=== PATIENT | female | born 1995 | race Caucasian/White ===

== ENCOUNTER → 2020-04-21 10:31 | Outpatient (BNVA) | payer MEDICARE, MEDICAID, SELFPAY | PROVIDERS: PCP Internal Medicine; Referring Provider Internal Medicine; Visit Provider Advanced Practice Midwife | DX: Z76.89 Persons encountering health services in other specified circumstances (principal) ==

== ENCOUNTER 2020-05-06 13:08 | Outpatient (REF) | payer MEDICARE, MEDICAID, SELFPAY ==
--- NOTE | 2020-05-06 13:27 | US_ITS ---
EXAMINATION: US OBSTETRICAL CLINICAL INFORMATION: 24-year-old at 19.5 weeks of gestation Suspected anomaly COMPARISON: 03/18/2020 TECHNIQUE: Real-time transabdominal ultrasound was performed using C1-5 megahertz transducer. FINDINGS: A single, active, fetus is seen in vertex presentation. The placenta is anterior without previa, and the amniotic fluid volume is wnl. MEASUREMENTS: 1. Biparietal Diameter: 4.4 cm; 19.2 wks 2. Occipital Frontal Diameter: 5.8 cm 3. Head Circumference: 16.2 cm; 19.0 wks 4. Abdominal Circumference: 14.5 cm; 19.6 wks 5. Femur Length: 3.1 cm; 19.6 wks 6. Humerus Length: 2.94 cm; 19.5 wks 7. Tibia Length: 2.8 cm; 20.0 wks 8. Ulna Length: 2.8 cm; 3.2 wks 9. Lateral ventricle: 0.65 cm 10. Cerebellum: 1.9 cm; 19.4 wks 11. Cisterna Magna: 0.54 cm 12. Nuchal Fold: 4.2 mm 13. Heart Rate: 153 beats per minute Rt ovary: normal Lt ovary: normal Cervical length cm on T/A. GESTATIONAL AGE: 1. Established GA: 19.5 wks 2. GA from REPLACED BY [facility]: 19.4 wks ESTIMATED DATE OF DELIVERY: 1. Established EMERITA: 09/25/2020 2. EMERITA from REPLACED BY [facility]: 09/26/2020 ANATOMY: The visualized anatomy includes but not limited to: 1. Cranium: Normal 2. Intracranial anatomy: cavum septum pellucidi, lateral ventricles, choroid plexus, cerebellum, posterior fossa, third and fourth ventricles. 3. face: orbits, lip/palate, profile, nasal bone 4. A discrete cysts measuring 0.5 x 0.5 cm noted in the left side of the neck. Most likely lymphatic cyst. No evidence of mass effect on trachea. 5. Heart: four-chamber view of the heart, ventricular septum, foramen ovale, pulmonary vein, left and right outflow tracts, three-vessel view, 3 vessel trachea view, aortic and ductal arches, situs.. 6. Diaphragm: Normal 7. Abdominal wall: Normal 8. Cord Insertion: Normal 9. Spine: Cervical, thoracic, lumbar, sacral. 10. Stomach: Normal size and shape 11. Right Kidney: Normal 12. Left Kidney: Normal 13. 3 vessel cord: Normal 14. Upper extremity: Open hands, fifth digit. 15. Lower extremity: Tibia, fibula, bilateral feet. 16. Bladder: Normal 17. Genitalia: Female, patient aware US/US OB /maternal detail IMPRESSION: 1. Single, living, intrauterine with appropriate biometry. 2. A discrete, left, neck cyst, most suggestive of lymphatic contrast cyst. Does not appear to involve the thyroid or larynx/trachea. Remainder of the anatomy is within normal limits. 3. Normal amniotic fluid volume DISCUSSION: I reviewed today's ultrasound findings. We discussed the limitations of ultrasound in diagnosing aneuploidy and other congenital abnormalities. I reviewed the differences between screening test and diagnostic test. Amniocentesis was discussed and declined. She had low risk N IPT. A discrete, lymphatic cyst in the neck is usually not associated with aneuploidy and is an isolated finding. However at times it may grow and cause airway obstruction. Since the cyst is outside of the trachea and unilateral, it is unlikely to cause complete obstruction of trachea or esophagus. Rare syndromes such as Medina's can be a possibility but unlikely as they often present with bilateral lymphatic cysts. She was informed that the baseline incidence of congenital abnormalities is approximately 3-5%. Not all these conditions are diagnosable in utero. RECOMMENDATIONS: 1. Refer to the [facility] for confirmatory ultrasound, MFM and genetic consultation. 2. f/u in 6 weeks (not scheduled). Thank you for allowing me to participate in her care. Visiting time 40 minutes. Majority of this visit was spent reviewing and discussing her care.
== END 2020-05-06 13:09 | disposition home or self-care (01) ==
LOC: HO.US 13:08
PROVIDERS: Visit Provider Advanced Practice Midwife
DX: Z34.80 Encounter for supervision of other normal pregnancy, unspecified trimester (principal); Z36.3 Encounter for antenatal screening for malformations; Z3A.19 19 weeks gestation of pregnancy
CPT/HCPCS: 76811

== ENCOUNTER → 2020-05-16 11:43 | Outpatient (BNVA) | payer MEDICARE, MEDICAID, SELFPAY | PROVIDERS: PCP Internal Medicine; Visit Provider Advanced Practice Midwife | DX: O35.8XX0 Maternal care for other (suspected) fetal abnormality and damage, not applicable or unspecified (principal); Z3A.21 21 weeks gestation of pregnancy; Z23 Encounter for immunization | CPT/HCPCS: 90686 ==

== ENCOUNTER → 2020-06-13 10:49 | Outpatient (BNVA) | payer MEDICARE, MEDICAID, SELFPAY | PROVIDERS: PCP Internal Medicine; Visit Provider Advanced Practice Midwife | DX: Z76.89 Persons encountering health services in other specified circumstances (principal) ==

== ENCOUNTER 2020-12-02 10:25 | Outpatient (REF) | payer OTHER, SELFPAY ==
[2020-12-02 10:52] LABS: COVID-19 Test Negative (Negative)
== END 2020-12-02 10:26 | disposition home or self-care (01) ==
LOC: HO.LAB 10:25
PROVIDERS: Visit Provider Internal Medicine
DX: Z20.822 Contact with and (suspected) exposure to COVID-19 (principal)
CPT/HCPCS: 36415; 87635; C9803

== ENCOUNTER 2021-12-27 09:35 | Outpatient (REF) | payer OTHER, SELFPAY ==
[2021-12-27 11:00] LABS: MANUAL DIFF FLAG NO
[2021-12-27 11:04] LABS: Basophils Percent Auto 0.3 % (0-2); Eosinophils Absolute Auto 0.2 X10*3/uL (0.0-0.4); Eosinophils Percent Auto 3.8 % (0-4); Hemoglobin 13.3 g/dl (12.0-16.0); Imm Gran Abs Auto 0.02 X10*3/uL (0.00-0.03); Imm Gran Pct Auto 0.3 % (0.0-0.4); Lymphocytes Absolute Auto 1.1 X10*3/uL (1.2-4.9); Lymphocytes Percent Auto 18.2 % (20-40); Mean Corpuscular HGB Conc 31.7 g/dl (31.0-35.0); Mean Corpuscular Hemoglobin 28.1 pg (27.0-33.0); Mean Corpuscular Volume 88.6 fL (80.0-98.0); Mean Platelet Volume 11.3 fL (9.4-12.3); Monocytes Absolute Auto 0.4 X10*3/uL (0.1-1.2); Monocytes Percent Auto 7.4 % (2-11); Neutrophils Absolute Auto 4.2 x10*3/uL (2.0-8.3); Platelet Count 253 X10*3/uL (160-400); Red Blood Count 4.74 X10*6/uL (4.20-5.50); Red Cell Distribution Width 12.2 % (11.0-16.0)
[2021-12-27 11:16] LABS: Alanine Aminotransferase 18 U/L (0-31); Albumin Level 4.6 g/dL (3.5-5.0); Alkaline Phosphatase 61 U/L (39-117); Anion Gap 10 (12-20); Aspartate Amino Transferase 14 U/L (5-31); Bilirubin Total 0.6 mg/dL (0.0-1.0); Blood Urea Nitrogen 14 mg/dL (9-16); Calcium 9.7 mg/dL (8.4-10.2); Carbon Dioxide 28 mmol/L (22-29); Chloride 107 mmol/L (96-108); Cholesterol 136 mg/dL; Estimated Glomerular Filt Rate > 60; Glucose Fasting 93 mg/dL (60-99); HDL Cholesterol 32 mg/dL; LDL Cholesterol Calculated 87 mg/dl; Potassium 4.4 mmol/L (3.3-5.1); Sodium 141 mmol/L (135-145); Total Protein 7.4 g/dL (6.5-8.0); Triglycerides 86 mg/dL
[2021-12-27 11:32] LABS: Appearance Urine HAZY; Color Urine YELLOW; Glucose Urine UA NEG (NEG); Leukocyte Esterase Urine NEG (NEG); Nitrite Urine NEG (NEG); Urine Blood NEG (NEG); Urine Ketones NEG (NEG); Urine Protein NEG (NEG-TRACE)
[2021-12-27 12:01] LABS: Vitamin B12 474 pg/mL (200-900)
[2022-01-02 12:36] LABS: Vitamin D 25-OH, D2 <4 ng/mL; Vitamin D 25-OH, D3 25 ng/mL; Vitamin D 25-OH, Total 25 ng/mL (30-100)
== END 2021-12-27 09:36 | disposition home or self-care (01) ==
LOC: HO.HMGCLDS 09:35
PROVIDERS: PCP Internal Medicine; Visit Provider Internal Medicine
DX: Z00.01 Encounter for general adult medical examination with abnormal findings (principal); M54.9 Dorsalgia, unspecified; M77.10 Lateral epicondylitis, unspecified elbow; R42 Dizziness and giddiness; R53.83 Other fatigue
CPT/HCPCS: 36415; 80053; 80061; 81003; 82306; 82607; 84443; 85025

== ENCOUNTER → 2022-02-15 09:08 | Outpatient (BNVA) | payer OTHER, SELFPAY | PROVIDERS: PCP Internal Medicine; Visit Provider Physician Assistant | DX: M77.11 Lateral epicondylitis, right elbow (principal); M77.12 Lateral epicondylitis, left elbow | CPT/HCPCS: 99202 ==

== ENCOUNTER 2022-02-22 09:00 | Outpatient (RCR) | payer OTHER, SELFPAY ==
--- NOTE | 2022-01-26 09:46 | MHC.PT.EP ---
[facility] [place] [facility] [place] [facility] [place] [facility] [address] Dhiraj Ventura [address] [phone] F: [phone] F: [phone] F: [phone] F: [phone] Physical Therapy Plan of Care Date of Evaluation: Date of Surgery: n/a Diagnosis: dorsalgia Assessment: Patient is a 26 year old female presenting to PT with complaints of pain in her mid and lower back. Pt reports onset of pain began as a teenager with worsening over the last couple years due to insidious onset but does have scoliosis at baseline. She presents today with impairments in pain, ROM, core strength, hip strength, and posture. 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 Pt expresses nursing home goal of reduce pain, and is motivated to work towards this in PT. Clinical presentation today is most consistent with signs and sx associated with back pain that is likely muscular related and pt will benefit from skilled PT to address the following problems and impairments noted upon evaluation: pain, ROM, core strength, hip strength, and posture. These problems limit the patient with the following functional activities: ADLs, sitting, standing, bending, lifting. The prescribed treatment plan of care is medically necessary. Co-morbidities of hx seizures per pt at a young age but they stopped does not take meds for this, scoliosis were identified and taken into considerations of plan of care. Pt was educated on HEP, role of PT, prognosis, POC. Frequency and Duration: The patient will be seen 2 x week x 4 weeks Short Term Goals: Pt will demonstrate improved hip strength by 1/3 MMT for improved lumbopelvic stability in 2 weeks. Pt will demonstrate ability to perform PPT with good TA recruitment in 2 weeks. Pt will demonstrate improved postural awareness by sitting with biomechanically correct posture without cues throughout session to improve overall postural function in 2 weeks. Account Services Manager Goals: Pt will demonstrate improved Navdeep score by 10% in 4 weeks for improved functional mobility. Pt will demonstrate min to no pain when bending and lifting in 4 weeks for improved ability to care for her kids. Pt will demonstrate ability complete all ADLs with min to no pain in 4 weeks for return to PLOF. Treatment Plan: Modalities to reduce pain, spasms and effusion. Manual therapy to restore motion and function. Therapeutic exercise to improve strength and flexibility. Neuromuscular re-education for posture and balance. Therapeutic activities to return to functional activities of daily living. Electronically signed by: Yancy Stein, PT, DPT, ATC Please sign and return to therapist. Thank you for your referral.
--- NOTE | 2022-03-28 12:59 | MHC.PT.DC ---
[facility] [place] Office [place] Office [place] Office [address] Dhiraj Ventura [address] [phone] F: [phone] F: [phone] F: [phone] F: [phone] Physical Therapy Discharge Report Diagnosis: dorsalgia Date of Surgery: n/a Date of Evaluation: 01/26/22 Date of Discharge: 03/28/22 Treatments to Date: 6 Cancellations to Date: 1 No Shows to Date: 1 Discharge Status: Discharge Summary: Pt has not been seen in skilled PT in >30 days. Pt to be d/c per our policy. Electronically signed by: Yancy Stein, PT, DPT, ATC Please sign and return to therapist. Thank you for your referral.
== END 2022-03-28 13:00 | disposition home or self-care (01) ==
LOC: HO.PTCHIC 09:00
PROVIDERS: PCP Internal Medicine; Visit Provider Internal Medicine
DX: M54.9 Dorsalgia, unspecified (principal)
CPT/HCPCS: 97110; 97140; 97161

== ENCOUNTER 2023-06-12 13:10 | Outpatient (AMB) | payer OTHER, SELFPAY ==
--- NOTE | 2023-06-12 13:24 | A.OFFPC_ITS ---
Vital Signs 06/12/23 13:25 Height 5 ft 3 in Weight 157 lb BMI 27.8 BP 110/80 Blood Pressure Location Rt brachial Position Sitting Pulse 76 Pulse Source Pulse Oximeter Pulse Oximetry (%) 98 Oxygen Delivery Method Room Air Intake Visit Reasons: RT foot Pain up to hip Allergies No Known Allergies [No Known Allergies*] Allergy (Verified 02/28/22 11:41) Medication List - Last Reconciled 06/12/23 by Tarun Harmon MD No Known Home Meds Tobacco use date assessed: 06/12/23 Dental Screening Dental Screen Date: 06/12/23 Did you have a dental visit in the last 12 months?: Yes Did you have a dental problem in the last 6 months where you did not have access to dental care?: No Was dental information given to patient?: Patient has dentist HPI RT foot Pain up to hip HPI Details Patient is 27-year-old female came in today to be evaluated for to medical problems Patient is having lower lumbar back pain for the past 3 months, patient says that he started suddenly 1 day It is radiating down to her right leg which is also having shooting pain and paresthesia in lower part of the leg. She has no bowel or bladder issue. Patient does have 3 children at home 9-year-old 5-year-old and a 2-year-old and she sometimes picks up her 2-year-old child. She is also having chronic nasal congestion she is using Flonase nasal spray 2 times a day and still not able to breathe especially at night Patient says that she is not able to smell anymore. On examination she has a deviated nasal septum to left I will be booking her appointment with ENT specialist. Meanwhile I have ordered x-ray of her lumbar spine Meloxicam 15 mg once a day and prednisone 20 mg once a day with food Prednisone for 5 days and meloxicam for 2 weeks Patient is to return in 2 week for re-evaluation She is also due for physical exam [facility] Medical History Migraine headache Scoliosis Surgical History No history of previous surgery Family History Maternal Grandmother Diabetes mellitus CVD (cardiovascular disease) Social History Housing: House Alcohol intake: never Patient Tobacco Use Status: Never used Tobacco e-Cigarette/Vaping Use: Never Used Second Hand Smoke Exposure: No service: No Current occupational status: employed Gender identity: Female Cognitive needs: No Hearing needs: No Vision needs: No Female Reproductive History Menstrual Age of Menarche: 13 Questionnaire PHQ-9 Over the last 2 weeks, how often have you been bothered by any of the following problems? 1. Little interest or pleasure in doing things: not at all 2. Feeling down, depressed, or hopeless: not at all 3. Trouble falling or staying asleep, or sleeping too much: not at all 4. Feeling tired or having little energy: not at all 5. Poor appetite or overeating: not at all 6. Feeling bad about yourself - or that you are a failure or have let yourself or your family down: not at all 7. Trouble concentrating on things, such as reading the newspaper or watching television: not at all 8. Moving or speaking so slowly that other people could have noticed. Or the opposite - being so fidgety or restless that you have been moving around a lot more than usual: not at all 9. Thoughts that you would be better off or of hurting yourself in some way: not at all Total score: 0 Depression Screening Interpretation: Negative Depression Screening Done: Yes 41045 - PHQ-9 Billing: Yes Source: Developed by Drs. Mohinder Turpin, Sandee Corcoran, Wicho Elizondo and colleagues, with an educational alan from [employer]. Thrive Questionnaire Date Thrive assessed: 06/12/23 I am a: Patient What is your living situation today?: I have a steady place to live Within the past 12 months, did the food you bought not last and you didn't have the money to get more?: Sometimes True Within the past 12 months, did you worry whether your food would run out before you got money to buy more?: Sometimes True Do you have trouble paying for medicines?: No Do you have trouble getting transportation to medical appointments?: No Do you have trouble paying your heating and electricity bill?: Yes Do you have trouble taking care of your child, family member or friend?: No Do you have trouble with day-to-day activities such as bathing, preparing meals, shopping, managing finances, etc.?: No Are you currently unemployed and looking for a job?: No Are you interested in more education?: No Please select the resources that you would like help with: None Currently or been in a relationship where the following occur: no concerns reported AUDIT C Alcohol Use Questionnaire (AUDIT-C) 1. How often do you have a drink containing alcohol?: Monthly or less 2. How many drinks containing alcohol do you have on a typical day when you are drinking?: 1 or 2 3. How often do you have six or more drinks on one occasion?: Never Total Score: 1 Score Reviewed/Action Taken: No JOANNA-7 AMB Questionnaire JOANNA-7 Date JOANNA - 7 assessed: 06/12/23 Feeling nervous, anxious, or on edge: 1 = Several days Not being able to stop or control worryin = Several days Worrying too much about different things: 3 = Nearly every day Trouble relaxin = More than half the days Being so restless that it is hard to sit still: 1 = Several days Becoming easily annoyed or irritable: 1 = Several days Feeling afraid as if something awful might happen: 1 = Several days Total JOANNA-7 score (0-4 normal; 5-9 mild; 10-14 moderate; 15-21 severe): 10 Source: Developed by Drs. Mohinder Turpin, Sandee Corcoran, Wicho Elizondo and colleagues, with an educational alan from [employer]. JOANAN-7 Assessment Billing JOANNA-7 Assessment Tool: JOANNA-7 Assessment 86032 Review of Systems Const Denies chills and Denies fever(s) ENT Denies epistaxis Card Denies chest pain Resp Denies chest congestion, Denies cough and Denies hemoptysis GI Denies diarrhea and Denies nausea Skin/Breast Denies rash Neuro Reports no additional complaints Psych Reports no additional complaints Endo Reports no additional complaints Physical exam (Primary Care) Vital Signs: Last Vital Signs Pulse 76 06/12/23 13:25 BP 110/80 06/12/23 13:25 Pulse Ox 98 06/12/23 13:25 Oxygen Delivery Method Room Air 06/12/23 13:25 BMI result Body Mass Index 27.8 Tobacco/Smoking Status: Tobacco use Status Tobacco use date assessed 06/12/23 06/12/23 13:30 Patient Tobacco Use Status Never used Tobacco 06/12/23 13:24 e-Cigarette/Vaping Use Never Used 06/12/23 13:24 PHQ-9: PHQ-9 Score PHQ-9: Total score 0 06/12/23 13:30 Depression Screening Interpretation: Negative Thrive Assessment: Date of Thrive Assessment Date Thrive assessed 06/12/23 06/12/23 13:30 Currently or been in a relationship where the following occur: no concerns reported Const General: cooperative, comfortable and no acute distress Orientation/consciousness: patient oriented x3 HENMT Other: Clear nasal discharge with deviated septum to left Head: Yes normocephalic Eyes General: appearance normal, both eyes and all related structures Neck Neck: Yes supple Resp Effort & Inspection: normal respiratory effort, no cough and no stridor Cardio Rhythm: regular rhythm Heart sounds: S1 normal heart sound present and S2 normal heart sound present Back/Spine/Pelvis Other: No pain with percussion lumbar spine, range of motion slightly limited due to pain in flexion, straight leg negative Skin General skin exam: turgor normal Neuro Other: Motor sensory intact DTR 2+ bilateral symmetrical General: patient oriented x3, tone normal and moves all extremities Extrem Right lower extremity: no edema Left lower extremity: no edema Assessment and Plan Assessment & Plan (1) Right lumbar radiculitis: Code(s): M54.16 - Radiculopathy, lumbar region (2) Deviated nasal septum: Code(s): J34.2 - Deviated nasal septum (3) Chronic nasal congestion: Code(s): R09.81 - Nasal congestion (4) Anosmia: Code(s): R43.0 - Anosmia (5) Paresthesia of right leg: Code(s): R20.2 - Paresthesia of skin Plan Patient is 27-year-old female came in today to be evaluated for to medical problems Patient is having lower lumbar back pain for the past 3 months, patient says that he started suddenly 1 day It is radiating down to her right leg which is also having shooting pain and paresthesia in lower part of the leg. She has no bowel or bladder issue. Patient does have 3 children at home 9-year-old 5-year-old and a 2-year-old and she sometimes picks up her 2-year-old child. She is also having chronic nasal congestion she is using Flonase nasal spray 2 times a day and still not able to breathe especially at night Patient says that she is not able to smell anymore. On examination she has a deviated nasal septum to left I will be booking her appointment with ENT specialist. Meanwhile I have ordered x-ray of her lumbar spine Meloxicam 15 mg once a day and prednisone 20 mg once a day with food Prednisone for 5 days and meloxicam for 2 weeks Patient is to return in 2 week for re-evaluation She is also due for physical exam Orders: Orders XR lumbar spine 2-3V Today M54.16 - Radiculopathy, lumbar region Referrals Ear/Nose/Throat Referral J34.2 - Deviated nasal septum, R09.81 - Nasal congestion, R43.0 - Anosmia Medications: New meloxicam 15 mg PO DAILY 14 days 14 tabs 0RF prednisone 20 mg PO DAILY 5 days 5 tabs 0RF Coding Level of Care Code Est Pt Level 4 (70911) Diagnoses Right lumbar radiculitis M54.16 Deviated nasal septum J34.2 Chronic nasal congestion R09.81 Anosmia R43.0 Paresthesia of right leg R20.2 Additional Codes JOANNA-7 Assessment Billing - JOANNA-7 Assessment Tool: JOANNA-7 Assessment [id number] ([id number])
[2023-06-12 13:25] VITALS: BP 110/80; PULSE 76; O2SAT 98; BMI 27.8
== END 2023-06-12 14:34 | disposition home or self-care (01) ==
PROVIDERS: PCP Internal Medicine; Visit Provider Internal Medicine
DX: M54.16 Radiculopathy, lumbar region (principal); J34.2 Deviated nasal septum; R09.81 Nasal congestion; R43.0 Anosmia; R20.2 Paresthesia of skin
CPT/HCPCS: 99214

== ENCOUNTER 2023-06-26 12:07 | Outpatient (AMB) | payer OTHER, SELFPAY ==
--- NOTE | 2023-06-26 12:09 | A.OFFPC_ITS ---
Vital Signs 06/26/23 12:12 Height 5 ft 3 in Weight 157 lb 8 oz BMI 27.9 BP 120/86 Blood Pressure Location Rt brachial Position Sitting Pulse 83 Pulse Source Pulse Oximeter Pulse Oximetry (%) 99 Oxygen Delivery Method Room Air Intake Visit Reasons: Annual PE Over due/ 2 week follow up per [place] Allergies No Known Allergies [No Known Allergies*] Allergy (Verified 06/26/23 12:14) Medication List - Last Reconciled 06/26/23 by Tarun Harmon MD No Known Home Meds Tobacco use date assessed: 06/26/23 Dental Screening Dental Screen Date: 06/26/23 Did you have a dental visit in the last 12 months?: Yes Did you have a dental problem in the last 6 months where you did not have access to dental care?: No Was dental information given to patient?: Patient has dentist HPI Annual PE Over due/ 2 week follow up per [place] HPI Details Patient is 27-year-old female came in today for physical exam She was seen few days ago for back pain and severe nasal congestion and anosmia I prescribed NSAIDs and prednisone for her back pain and placed a referral for her to see ENT for DNS Patient says that when she took the medication I prescribed for back her nasal congestion resolved and she was able to smell Her back pain is better but she still have it I am ordering labs to be done fasting, patient did not do the x-ray that I ordered when I saw her few days ago she will have it done as well I am prescribing Flonase nasal spray and Zyrtec that she need to start taking She is also verbalizing to feeling anxious and having panic attacks Patient is willing to try medication, I have sent Lexapro 10 mg tablet patient is take half a tablet for a week and then full tablet We will book telemedicine visit in 3 week to see how she is doing Due for Pap smear [facility] Medical History Migraine headache Scoliosis Surgical History No history of previous surgery Family History Maternal Grandmother Diabetes mellitus CVD (cardiovascular disease) Social History Housing: House Alcohol intake: never Patient Tobacco Use Status: Never used Tobacco e-Cigarette/Vaping Use: Never Used Second Hand Smoke Exposure: No service: No Current occupational status: employed Gender identity: Female Cognitive needs: No Hearing needs: No Vision needs: No Female Reproductive History Menstrual Age of Menarche: 13 Questionnaire PHQ-9 Over the last 2 weeks, how often have you been bothered by any of the following problems? 1. Little interest or pleasure in doing things: several days 2. Feeling down, depressed, or hopeless: several days 3. Trouble falling or staying asleep, or sleeping too much: more than half the days 4. Feeling tired or having little energy: not at all 5. Poor appetite or overeating: not at all 6. Feeling bad about yourself - or that you are a failure or have let yourself or your family down: several days 7. Trouble concentrating on things, such as reading the newspaper or watching television: several days 8. Moving or speaking so slowly that other people could have noticed. Or the opposite - being so fidgety or restless that you have been moving around a lot more than usual: not at all 9. Thoughts that you would be better off or of hurting yourself in some way: not at all Total score: 6 Depression Screening Interpretation: Negative Depression Screening Done: Yes [id number] - PHQ-9 Billing: Yes Source: Developed by Drs. Mohinder Turpin, Sandee Corcoran, Wicho Elizondo and colleagues, with an educational alan from [employer] Thrive Questionnaire Date Thrive assessed: 06/12/23 AUDIT C Alcohol Use Questionnaire (AUDIT-C) 1. How often do you have a drink containing alcohol?: 2-4 times a month 2. How many drinks containing alcohol do you have on a typical day when you are drinking?: 1 or 2 3. How often do you have six or more drinks on one occasion?: Never Total Score: 2 Score Reviewed/Action Taken: Yes JOANNA-7 AMB Questionnaire JOANNA-7 Date JOANNA - 7 assessed: 06/12/23 Source: Developed by Drs. Mohinder Turpin, Sandee Corcoran, Wicho Elizondo and colleagues, with an educational alan from [employer] Review of Systems Const Denies chills, Denies fever(s) and Denies headache(s) Eyes Denies blurry vision ENT Denies headache(s), Denies odynophagia and Denies sinus pain Card Denies chest pain at rest and Denies chest pain with activity Resp Denies cough and Denies hemoptysis GI Denies diarrhea, Denies odynophagia, Denies vomiting and Denies hematemesis Reports as per HPI Musc Denies abnormal gait Skin/Breast Reports as per HPI Neuro Denies Neuro-related abnormal movements, Denies Abnormal speech present, Denies abnormal gait, Denies headache(s) and Denies Sensory deficit (Neuro) Psych Denies mood swings and Denies paranoia Endo Reports as per HPI Jared/Lymph Reports as per HPI Aller/Immun Reports as per HPI Physical exam (Primary Care) Vital Signs: Last Vital Signs Pulse 83 06/26/23 12:12 BP 120/86 06/26/23 12:12 Pulse Ox 99 06/26/23 12:12 Oxygen Delivery Method Room Air 06/26/23 12:12 BMI result Body Mass Index 27.9 Tobacco/Smoking Status: Tobacco use Status Tobacco use date assessed 06/26/23 06/26/23 12:14 Patient Tobacco Use Status Never used Tobacco 06/26/23 12:10 e-Cigarette/Vaping Use Never Used 06/26/23 12:10 Depression Screening Interpretation: Negative Thrive Assessment: Date of Thrive Assessment Date Thrive assessed 06/12/23 06/26/23 12:10 Const General: cooperative, comfortable and no acute distress Orientation/consciousness: patient oriented x3 HENMT Other: Nasal congestion present Head: Yes normocephalic and Yes atraumatic Eyes General: appearance normal, both eyes and all related structures Pupils: Equal, round and reactive pupils present EOM: EOMs intact bilaterally Neck Neck: Yes supple and No lymphadenopathy Thyroid: Thyroid normal Lymphatic: no lymphadenopathy noted Chest Breast/axilla palpation: normal palpation of the breasts Resp Effort & Inspection: normal respiratory effort and able to speak in complete sentences Auscultation: clear to auscultation bilaterally Cardio Heart sounds: S1 normal heart sound present and S2 normal heart sound present GI Palpation (GI): Soft to palpation and nontender Auscultation: normal bowel sounds General: Yes no CVA tenderness Back/Spine/Pelvis Back: no CVA tenderness Skin General skin exam: elasticity normal and turgor normal Neuro General: patient oriented x3 and gait normal Cranial nerves: Yes Equal, round and reactive pupils present Speech: No Abnormal speech present Sensory Exam: No Sensory deficit (Neuro) Coordination: tandem gait normal and Romberg test negative Extrem General: Yes normal exam except as noted and No edema Assessment and Plan Assessment & Plan (1) Encounter for general adult medical examination with abnormal findings: Code(s): Z00.01 - Encounter for general adult medical examination with abnormal findings (2) Vitamin D deficiency: Code(s): E55.9 - Vitamin D deficiency, unspecified (3) Right lumbar radiculitis: Code(s): M54.16 - Radiculopathy, lumbar region (4) Deviated nasal septum: Code(s): J34.2 - Deviated nasal septum (5) Chronic nasal congestion: Code(s): R09.81 - Nasal congestion (6) Anosmia: Code(s): R43.0 - Anosmia (7) Paresthesia of right leg: Code(s): R20.2 - Paresthesia of skin Plan Patient is 27-year-old female came in today for physical exam She was seen few days ago for back pain and severe nasal congestion and anosmia I prescribed NSAIDs and prednisone for her back pain and placed a referral for her to see ENT for DNS Patient says that when she took the medication I prescribed for back her nasal congestion resolved and she was able to smell Her back pain is better but she still have it , radiating to right leg. However there is no weakness in her right leg and paresthesias better I am ordering labs to be done fasting, patient did not do the x-ray that I ordered when I saw her few days ago she will have it done as well I am prescribing Flonase nasal spray and Zyrtec that she need to start taking She is also verbalizing to feeling anxious and having panic attacks Patient is willing to try medication, I have sent Lexapro 10 mg tablet patient is take half a tablet for a week and then full tablet We will book telemedicine visit in 3 week to see how she is doing Due for Pap smear Orders: Orders Complete Blood Count Auto Diff Today E55.9 - Vitamin D deficiency, unspecified, Z00.01 - Encounter for general adult medical examination with abnormal findings Comprehensive [place]. Panel Fast Today E55.9 - Vitamin D deficiency, unspecified, Z00.01 - Encounter for general adult medical examination with abnormal findings Lipid Panel Today E55.9 - Vitamin D deficiency, unspecified, Z00.01 - Encounter for general adult medical examination with abnormal findings Referrals JD EDWARDS Referral Z01.419 - Encounter for gynecological examination (general) (routine) without abnormal findings Medications: New escitalopram oxalate (Lexapro) 10 mg PO DAILY 30 tabs 0RF Anxiety fluticasone propionate 50 mcg/actuation (Allergy Relief (fluticasone)) administer into each nostril 1 spray intranasal DAILY 30 days 1 mL 0RF R09. 81 - Nasal congestion cholecalciferol (vitamin D3) 25 mcg PO DAILY 90 days 90 caps 1RF cetirizine (Zyrtec) 10 mg PO DAILY 90 days 90 tabs 1RF Nasal congestion Coding Level of Care Code Est Pt Prev Care 18-39y(12787) Diagnoses Encounter for general adult medical examination with abnormal findings Z00.01 Vitamin D deficiency E55.9 Right lumbar radiculitis M54.16 Deviated nasal septum J34.2 Chronic nasal congestion R09.81 Anosmia R43.0 Paresthesia of right leg R20.2
[2023-06-26 12:12] VITALS: BP 120/86; PULSE 83; O2SAT 99; BMI 27.9
== END 2023-06-26 12:36 | disposition home or self-care (01) ==
PROVIDERS: PCP Internal Medicine; Visit Provider Internal Medicine
DX: Z00.01 Encounter for general adult medical examination with abnormal findings (principal); E55.9 Vitamin D deficiency, unspecified; M54.16 Radiculopathy, lumbar region; J34.2 Deviated nasal septum; R09.81 Nasal congestion; R43.0 Anosmia; R20.2 Paresthesia of skin
CPT/HCPCS: 99213; 99395

== ENCOUNTER 2023-07-16 09:50 | Outpatient (REF) | payer OTHER, SELFPAY ==
[2023-07-16 13:16] LABS: MANUAL DIFF FLAG NO
[2023-07-16 13:19] LABS: Basophils Absolute Auto 0.1 X10*3/uL (0.0-0.2); Eosinophils Absolute Auto 0.8 X10*3/uL (0.0-0.4); Eosinophils Percent Auto 12.1 % (0-4); Hemoglobin 13.7 g/dl (12.0-16.0); Imm Gran Abs Auto 0.01 X10*3/uL (0.00-0.03); Imm Gran Pct Auto 0.2 % (0.0-0.4); Lymphocytes Absolute Auto 1.7 X10*3/uL (1.2-4.9); Lymphocytes Percent Auto 27.8 % (20-40); Mean Corpuscular HGB Conc 32.6 g/dl (31.0-35.0); Mean Corpuscular Hemoglobin 28.8 pg (27.0-33.0); Mean Corpuscular Volume 88.4 fL (80.0-98.0); Mean Platelet Volume 11.4 fL (9.4-12.3); Monocytes Absolute Auto 0.6 X10*3/uL (0.1-1.2); Monocytes Percent Auto 8.8 % (2-11); Neutrophils Absolute Auto 3.1 x10*3/uL (2.0-8.3); Neutrophils Percent Auto 50.1 % (45-73); Platelet Count 248 X10*3/uL (160-400); Red Blood Count 4.75 X10*6/uL (4.20-5.50); Red Cell Distribution Width 12.3 % (11.0-16.0); White Blood Count 6.3 X10*3/uL (4.8-10.8)
[2023-07-16 13:32] LABS: Alanine Aminotransferase 19 U/L (0-31); Albumin Level 4.4 g/dL (3.5-5.0); Alkaline Phosphatase 58 U/L (39-117); Anion Gap 13 (12-20); Aspartate Amino Transferase 17 U/L (5-31); Bilirubin Total 0.3 mg/dL (0.0-1.0); Blood Urea Nitrogen 14 mg/dL (9-16); Calcium 9.2 mg/dL (8.4-10.2); Carbon Dioxide 25 mmol/L (22-29); Chloride 108 mmol/L (96-108); Cholesterol 137 mg/dL (<200); Estimated Glomerular Filt Rate > 60; Glucose Fasting 101 mg/dL (60-99); HDL Cholesterol 37 mg/dL (>40); LDL Cholesterol Calculated 85 mg/dL (<100); Potassium 4.3 mmol/L (3.3-5.1); Sodium 142 mmol/L (135-145); Triglycerides 77 mg/dL (<150)
== END 2023-07-16 09:51 | disposition home or self-care (01) ==
LOC: HO.HMGCLDS 09:50
PROVIDERS: PCP Internal Medicine; Visit Provider Internal Medicine
DX: Z00.01 Encounter for general adult medical examination with abnormal findings (principal); E55.9 Vitamin D deficiency, unspecified
CPT/HCPCS: 36415; 80053; 80061; 85025

== ENCOUNTER 2023-07-18 08:27 | Outpatient (AMB) | payer OTHER, SELFPAY ==
--- NOTE | 2023-07-18 08:40 | MHC.PC.OV ---
Intake Visit Reasons: [phone] Allergies No Known Allergies [No Known Allergies*] Allergy (Verified 07/18/23 08:40) Medication List - Last Reconciled 07/18/23 by Tarun Harmon MD cetirizine (Zyrtec) 10 mg PO DAILY 90 days cholecalciferol (vitamin D3) 25 mcg PO DAILY 90 days escitalopram oxalate (Lexapro) 10 mg PO DAILY fluticasone propionate 50 mcg/actuation (Allergy Relief (fluticasone)) 1 spray intranasal DAILY 30 days Tobacco use date assessed: 07/18/23 Dental Screening Dental Screen Date: 07/18/23 Did you have a dental visit in the last 12 months?: Yes Did you have a dental problem in the last 6 months where you did not have access to dental care?: No Was dental information given to patient?: Patient has dentist HPI [phone] HPI Details Patient is 27-year-old female with deviated nasal septum and chronic nasal discharge. I prescribed Flonase nasal spray which helped her with her allergies but did not help with the congestion, pre she is also having yellow nasal discharge and tells me that her sinuses are painful. I placed a referral for her to see ENT specialist a month ago, however patient says that her insurance changed this year so she need a new referral I am treating her with azithromycin and prednisone 10 mg once a day for 7 days Anxiety medication that I prescribed last visit, patient did not take as she was home and did feel much anxiety. [facility] Medical History Migraine headache Scoliosis Surgical History No history of previous surgery Family History Maternal Grandmother Diabetes mellitus CVD (cardiovascular disease) Social History Housing: House Alcohol intake: never Patient Tobacco Use Status: Never used Tobacco e-Cigarette/Vaping Use: Never Used Second Hand Smoke Exposure: No service: No Current occupational status: employed Gender identity: Female Cognitive needs: No Hearing needs: No Vision needs: No Female Reproductive History Menstrual Age of Menarche: 13 Questionnaire Thrive Questionnaire Date Thrive assessed: 06/12/23 JOANNA-7 AMB Questionnaire JOANNA-7 Date JOANNA - 7 assessed: 06/12/23 Source: Developed by Drs. Mohinder Turpin, Sandee Corcoran, Wicho Elizondo and colleagues, with an educational alan from [employer]. Review of Systems Const Denies chills and Denies fever(s) ENT Denies epistaxis Card Denies chest pain Resp Denies chest congestion, Denies cough and Denies hemoptysis GI Denies diarrhea and Denies nausea Skin/Breast Denies rash Neuro Reports no additional complaints Psych Reports no additional complaints Endo Reports no additional complaints Physical exam (Primary Care) Tobacco/Smoking Status: Tobacco use Status Tobacco use date assessed 07/18/23 07/18/23 08:41 Patient Tobacco Use Status Never used Tobacco 07/18/23 08:41 e-Cigarette/Vaping Use Never Used 07/18/23 08:41 Thrive Assessment: Date of Thrive Assessment Date Thrive assessed 06/12/23 07/18/23 08:41 Telehealth Telehealth Location of provider rendering services: practice address Location of patient: address on file Patient Identification confirmed using: Name, : Yes Telehealth method: video Patient verbally consented to treatment: Yes Patient verbally consented to billing insurance company: Yes Patient informed of any privacy concerns related to visit: Yes Minutes spent on Phone/Video with Pt.: 13 Assessment and Plan Assessment & Plan (1) Anosmia: Code(s): R43.0 - Anosmia (2) Chronic nasal congestion: Code(s): R09.81 - Nasal congestion (3) Deviated nasal septum: Code(s): J34.2 - Deviated nasal septum Plan Patient is 27-year-old female with deviated nasal septum and chronic nasal discharge. I prescribed Flonase nasal spray which helped her with her allergies but did not help with the congestion, pre she is also having yellow nasal discharge and tells me that her sinuses are painful. I placed a referral for her to see ENT specialist a month ago, however patient says that her insurance changed this year so she need a new referral I am treating her with azithromycin and prednisone 10 mg once a day for 7 days Anxiety medication that I prescribed last visit, patient did not take as she was home and did feel much anxiety. Orders: Referrals Ear/Nose/Throat Referral J34.2 - Deviated nasal septum, R09.81 - Nasal congestion, R43.0 - Anosmia Medications: New prednisone 10 mg PO DAILY 7 tabs 0RF 7 days azithromycin Take 2 tablets today then 1 daily 250 mg PO ONCE 6 tabs 0RF 5 days J06.9 - Acute upper respiratory infection, unspecified Discontinued escitalopram oxalate (Lexapro) Discontinued Reason: Doctor's Order 10 mg PO DAILY 30 tabs 0RF Anxiety Coding Level of Care Code Tele New Pt Level 3 (13132) Diagnoses Anosmia R43.0 Chronic nasal congestion R09.81 Deviated nasal septum J34.2
== END 2023-07-18 09:36 | disposition home or self-care (01) ==
PROVIDERS: PCP Internal Medicine; Visit Provider Internal Medicine
DX: R43.0 Anosmia (principal); R09.81 Nasal congestion; J34.2 Deviated nasal septum
CPT/HCPCS: 99213

== ENCOUNTER 2023-09-18 10:20 | Outpatient (AMB) | payer OTHER, SELFPAY ==
--- NOTE | 2023-09-18 10:39 | A.OFFVIS_ITS ---
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 No complaints. The patient is interested in STD screen Last Pap/HPV was negative in 02/01 [facility] Medical History (Updated 09/18/23 @ 11:02 by Mehran Salinas MD) Migraine headache Scoliosis Surgical History (Updated 09/18/23 @ 10:49 by [place] Ellis CMA) Hx of tubal ligation Family History Maternal Grandmother Diabetes mellitus CVD (cardiovascular disease) Social History (Updated 09/18/23 @ 10:51 by Africa Ellis CMA) Household Members: Spouse and Children Housing: House Alcohol intake: current Alcohol intake frequency: holidays/special occasions only Patient Tobacco Use Status: Never used Tobacco e-Cigarette/Vaping Use: Never Used Second Hand Smoke Exposure: No service: No Current occupational status: employed 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[employer]) Sexually active: Yes Sexual orientation: Straight/Heterosexual Gender identity: Female Cognitive needs: No Hearing needs: No Vision needs: No Female Reproductive History Menstrual Age of Menarche: 13 Date of last pap smear: 01/30/21 Review of Systems Const All systems reviewed & are unremarkable except as noted in HPI and below Card Reports as per HPI Resp Reports as per HPI GI Reports as per HPI and Reports no additional complaints Reports as per HPI Physical Exam Vital Signs: Last Vital Signs BP 110/70 09/18/23 10:45 Const General: cooperative, healthy appearing and comfortable Chest Chest palpation & inspection: normal inspection of the chest and normal palpation of entire chest wall Breast/axilla inspection: normal inspection of the breasts and normal inspection of the axillae Breast/axilla palpation: normal palpation of the breasts, normal palpation of the axillae and no axillary lymphadenopathy Resp Effort & Inspection: normal respiratory effort Auscultation: clear to auscultation bilaterally Percussion: percussion normal Cardio Palpation: normal PMI Rate: regular rate Rhythm: regular rhythm Heart sounds: no murmurs and no rubs Peripheral pulses: Peripheral pulses 2+ throughout GI Inspection: Yes normal to inspection Palpation (GI): Soft to palpation, nontender, no guarding, not rigid and No hepatosplenomegaly present Percussion: Yes normal to percussion Auscultation: normal bowel sounds Rectal Exam - Female: deferred General: Yes bladder normal to palpation External Female Exam: No lesion Speculum Exam - Vagina: normal appearance of the vagina, normal palpation, normal vaginal discharge and not erythematous Speculum Exam - Cervix: normal appearance of the cervix and normal palpation Bimanual exam- vagina & uterus: normal bimanual exam, normal palpation, uterine size normal, bladder normal to palpation, consistency normal and normal palpation Bimanual Exam- Adnexa, other: normal adnexae, no masses and no tenderness Assessment & Plan Assessment & Plan (1) Well woman exam: Code(s): Z01.419 - Encounter for gynecological examination (general) (routine) without abnormal findings Plan: Co testing the. Counseled the patient about the recommended dietary allowance of 1000 mg of Calcium & 600 IU of vitamin D. The patient was instructed to perform monthly self-breast exams , to call for any changes in menstrual patterns and to schedule an annual exam in a year; all questions answered and the patient verbalized understanding. (2) Screen for STD (sexually transmitted disease): Code(s): Z11.3 - Encounter for screening for infections with a predominantly sexual mode of transmission Plan: STD screening tests done includes: BV panel for trichomonas, GC/CT will send patient for serology std screening for HIV, RPR, Hep b s Ag, HepC Ab. Instructions given the patient to schedule a follow-up appointment for repeat serology screen in 6 months for possible false negatives. Orders: Orders Hepatitis B Surface Antigen Today Z20.2 - Contact with and (suspected) exposure to infections with a predominantly sexual mode of transmission Hepatitis C Antibody Today Z20.2 - Contact with and (suspected) exposure to infections with a predominantly sexual mode of transmission Syphilis Screen Today Z20.2 - Contact with and (suspected) exposure to infections with a predominantly sexual mode of transmission HIV Ab/Ag Today Z20.2 - Contact with and (suspected) exposure to infections with a predominantly sexual mode of transmission Coding Level of Care Code Est Pt Prev Care 18-39y(52287) Diagnoses Well woman exam Z01.419 Screen for STD (sexually transmitted disease) Z11.3
[2023-09-18 10:45] VITALS: BP 110/70
== END 2023-09-18 11:19 | disposition home or self-care (01) ==
LOC: HO.HWS 10:20
PROVIDERS: PCP Internal Medicine; Visit Provider Obstetrics & Gynecology
DX: Z01.419 Encounter for gynecological examination (general) (routine) without abnormal findings (principal); Z11.3 Encounter for screening for infections with a predominantly sexual mode of transmission
CPT/HCPCS: 99395

== ENCOUNTER 2023-09-18 10:20 | Outpatient (REF) | payer OTHER, SELFPAY ==
[2023-09-18 16:37] LABS: CT PCR NOT DETECTED (Not Detect.); NG PCR NOT DETECTED (Not Detect.)
[2023-09-19 08:43] LABS: Syphilis Screen Nonreactive (Nonreactive)
[2023-09-19 08:55] LABS: HIV AB/AG Nonreactive (Nonreactive); HIV Num 1 0.06 S/CO (0.00-0.99); Hepatitis B Surface Antigen Negative (Negative); ~Hepatitis C Antibody Nonreactive (Nonreactive)
[2023-09-19 11:10] LABS: BV Int Neg Control Negative (Negative); BV Int Pos Control Positive (Positive)
== END 2023-09-18 10:21 | disposition home or self-care (01) ==
LOC: HO.LAB 10:20
PROVIDERS: PCP Internal Medicine; Visit Provider Obstetrics & Gynecology
DX: Z01.419 Encounter for gynecological examination (general) (routine) without abnormal findings (principal); Z20.2 Contact with and (suspected) exposure to infections with a predominantly sexual mode of transmission
CPT/HCPCS: 0353U; 36415; 86780; 86803; 87340; 87389; 87480; 87510; 87660; 99395

== ENCOUNTER 2023-09-18 11:15 | Outpatient (REF) | payer OTHER, SELFPAY ==
[2023-09-25 12:48] LABS: HPV mRNA E6/E7 rflx Not Detected (Not Detected)
== END 2023-09-18 11:16 | disposition home or self-care (01) ==
LOC: HO.LNP 11:15
PROVIDERS: Visit Provider Obstetrics & Gynecology
DX: Z01.419 Encounter for gynecological examination (general) (routine) without abnormal findings (principal); Z20.2 Contact with and (suspected) exposure to infections with a predominantly sexual mode of transmission
CPT/HCPCS: 87624; 88142

== ENCOUNTER 2024-07-03 11:19 | Outpatient (AMB) | payer OTHER, SELFPAY ==
[2024-07-03 11:23] VITALS: BP 124/86; PULSE 96; O2SAT 99; BMI 30.4
--- NOTE | 2024-07-03 11:23 | A.OFFPC_ITS ---
Vital Signs 07/03/24 11:23 Height 5 ft 3 in Weight 171 lb 6 oz BMI 30.4 BP 124/86 Blood Pressure Location Lt brachial Position Sitting Pulse 96 Pulse Source Pulse Oximeter Pulse Oximetry (%) 99 Oxygen Delivery Method Room Air Intake Visit Reasons: Annual PE Allergies No Known Allergies [No Known Allergies*] Allergy (Verified 07/03/24 11:23) Medication List - Last Reconciled 07/03/24 by Tarun Harmon MD cetirizine (Zyrtec) 10 mg PO DAILY 90 days fluticasone propionate 50 mcg/actuation (Allergy Relief (fluticasone)) 1 spray intranasal DAILY 30 days Tobacco use date assessed: 07/03/24 Dental Screening Dental Screen Date: 07/03/24 Did you have a dental visit in the last 12 months?: Yes Did you have a dental problem in the last 6 months where you did not have access to dental care?: No Was dental information given to patient?: Patient has dentist HPI Annual PE HPI Details Physical exam appointment - The patient is a 28-year-old female pr esenting with management of anxiety and chronic headaches. - Headaches occurring nearly every day f or approximately four months. - Reports association with stress and la ck of adequate sleep, with anxiety exacerbating symptoms. - Sleep disturbances described as diffic ulty falling asleep and waking up during the night. - Prior prescription for anxiety medicat ion, currently not being taken. - Reports numbness and swelling in hands , primarily affecting right side, particularly in the morning. - Known scoliosis present since childhoo d. - Perennial allergic rhinitis contributi ng to sinus congestion and headaches when nasacort is not used consistently. Health Maintenance - Discussed importance of consistent use of allergy medication to prevent sinus congestion and associated headaches. - Recommended use of wrist splint at [facility] to alleviate carpal tunnel syndrome symptoms. - Advised on sleep hygiene practices to improve sleep pattern and reduce anxiety-related disturbances. - OBGYN visit up-to-date [facility]: [facility] Medications - Previous prescription for anxiety (uns pecified, not currently taken). - Nasacort for allergic rhinitis (not ta [place] consistently). 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 - Stress related to school and childcare responsibilities; mother of three children aged 10, 5, and 3. Diagnostic results: Fasting sugar was high in July, strong family history of diabetes UA done today shows normal values Review of Systems - Neurological: Reports headaches nearly daily, anxiety, sleep disturbances. - Musculoskeletal: Reports numbness and swelling in hands, more prominent in the right hand. - Respiratory: Reports allergy-related s inus congestion. - Genitourinary: Reports increased urina tion. - General: No fever no chills - Neurological: No headaches no dizzin ess - Ear nose throat: No sore throat no hearing difficulty no ear pain - Cardiovascular: No syncope, no chest pain, no palpitations - Gastrointestinal: No nausea vomiting or diarrhea - Endocrine: No polyuria polydipsia no heat intolerance - Genitourinary: No dysuria - Skin: No new complaints Physical Exam General: Cooperative, healthy appearing, comfortable, no acute distress Orientation: Patient oriented x3 Limitations: None Head: Normal to inspection Ears: Within normal limit visually Nose: Normal external nose present Face and sinus: Normal facial exam Eyes: Appearance normal, extraocular movement intact pupils reactive Neck: Normal visual inspection and supple Respiratory: Normal respiratory effort and able to speak in complete sentences. Clear to auscultation, no stridor Cardiovascular: S1 and S2 GI: Normal to inspection. Soft to palpation and nontender Skin: Turgor normal, no acute findings Neuro: Patient oriented x3, motor sensory intact, balance intact, tandem pass Extremities: Hands are numb and swollen, mostly on the right side. Recommend wrist splint at night. Patient Instructions - Continue consistent daily use of Nasac ort for allergy management. - Use wrist splint at night to reduce pr essure on the nerves in the hand. - Practice good sleep hygiene by going t o bed earlier and managing nighttime anxiety. - Follow up in telemedicine visit in thr ee weeks to reassess symptoms and review any lab results. - Consider resuming prescribed anxiety m edication if symptoms persist or worsen. 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 1. Little interest or pleasure in doing things: several days 2. Feeling down, depressed, or hopeless: more than half the days 3. Trouble falling or staying asleep, or sleeping too much: more than half the days 4. Feeling tired or having little energy: several days 5. Poor appetite or overeating: several days 6. Feeling bad about yourself - or that you are a failure or have let yourself or your family down: not at all 7. Trouble concentrating on things, such as reading the newspaper or watching television: nearly every day 8. Moving or speaking so slowly that other people could have noticed. Or the opposite - being so fidgety or restless that you have been moving around a lot more than usual: several days 9. Thoughts that you would be better off or of hurting yourself in some way: not at all Total score: 11 Depression Screening Interpretation: Positive Depression Screening Follow-up: New Medication prescribed Depression Screening Done: Yes 58237 - PHQ-9 Billing: Yes Source: Developed by Drs. Mohinder Turpin, Sandee Corcoran, Wicho Elizondo and colleagues, with an educational alan from [employer]. Thrive Questionnaire Date Thrive assessed: 07/03/24 I am a: Patient What is your living situation today?: I have a steady place to live Within the past 12 months, did the food you bought not last and you didn't have the money to get more?: Never true Within the past 12 months, did you worry whether your food would run out before you got money to buy more?: Never true Do you have trouble paying for medicines?: No Do you have trouble getting transportation to medical appointments?: No Do you have trouble paying your heating and electricity bill?: Yes Do you have trouble taking care of your child, family member or friend?: No Do you have trouble with day-to-day activities such as bathing, preparing meals, shopping, managing finances, etc.?: No Are you currently unemployed and looking for a job?: Yes Are you interested in more education?: No Please select the resources that you would like help with: Utilities and Daily support Currently or been in a relationship where the following occur: No concerns reported THRIVE Score: 1 AUDIT C Alcohol Use Questionnaire (AUDIT-C) 1. How often do you have a drink containing alcohol?: Never 2. How many drinks containing alcohol do you have on a typical day when you are drinking?: 1 or 2 3. How often do you have six or more drinks on one occasion?: Never Total Score: 0 Score Reviewed/Action Taken: Yes JOANNA-7 AMB Questionnaire JOANNA-7 Date JOANNA - 7 assessed: 07/03/24 Feeling nervous, anxious, or on edge: 3 = Nearly every day Not being able to stop or control worryin = Several days Worrying too much about different things: 2 = More than half the days Trouble relaxin = Nearly every day Being so restless that it is hard to sit still: 3 = Nearly every day Becoming easily annoyed or irritable: 2 = More than half the days Feeling afraid as if something awful might happen: 1 = Several days Total JOANNA-7 score (0-4 normal; 5-9 mild; 10-14 moderate; 15-21 severe): 15 Source: Developed by Drs. Mohinder Turpin, Sandee Corcoran, Wicho Elizondo and colleagues, with an educational alan from [employer]. JOANNA-7 Assessment Billing JOANNA-7 Assessment Tool: JOANNA-7 Assessment 42986 Physical exam (Primary Care) Vital Signs: Last Vital Signs Pulse 96 07/03/24 11:23 BP 124/86 07/03/24 11:23 Pulse Ox 99 07/03/24 11:23 Oxygen Delivery Method Room Air 07/03/24 11:23 BMI result Body Mass Index 30.4 Tobacco/Smoking Status: Tobacco use Status Tobacco use date assessed 07/03/24 07/03/24 11:26 Patient Tobacco Use Status Never used Tobacco 07/03/24 11:26 e-Cigarette/Vaping Use Never Used 07/03/24 11:26 PHQ-9: PHQ-9 Score PHQ-9: Total score 11 07/03/24 11:26 Depression Screening Interpretation: Positive Depression Screening Follow-up: New Medication prescribed Thrive Assessment: Date of Thrive Assessment Date Thrive assessed 07/03/24 07/03/24 11:26 Currently or been in a relationship where the following occur: No concerns repor cornelio Coding Level of Care Code Est Pt Level 4 (24936) Est Pt Prev Care 18-39y(85750) Diagnoses Encounter for general adult medical examination with abnormal findings Z00.01 Paresthesias in left hand R20.2 Anxiety, generalized F41.1 Headache syndrome G44.89 Tired R53.83 Vitamin D deficiency E55.9 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 Scoliosis type: idiopathic Idiopathic scoliosis type: juvenile Spinal region: thoracic Chronic nasal congestion R09.81 Stress F43.9 Additional Codes JOANNA-7 Assessment Billing - JOANNA-7 Assessment Tool: JOANNA-7 Assessment 00304 ([id number]) PHQ-9 - 03109 - PHQ-9 Billing: Yes ([id number]) Assessment & Plan Assessment & Plan (1) Encounter for general adult medical examination with abnormal findings: Code(s): Z00.01 - Encounter for general adult medical examination with abnormal findings Category: Medical (2) Paresthesias in left hand: Code(s): R20.2 - Paresthesia of skin Category: Medical (3) Anxiety, generalized: Code(s): F41.1 - Generalized anxiety disorder Category: Medical (4) Headache syndrome: Code(s): G44.89 - Other headache syndrome Category: Medical (5) Tired: Code(s): R53.83 - Other fatigue Category: Medical (6) Vitamin D deficiency: Code(s): E55.9 - Vitamin D deficiency, unspecified Category: Medical (7) Scoliosis: Code(s): M41.9 - Scoliosis, unspecified Category: Medical Qualifiers: Scoliosis type: idiopathic Idiopathic scoliosis type: juvenile Spinal region: thoracic Qualified Code(s): M41.114 - Juvenile idiopathic scoliosis, thoracic region (8) Chronic nasal congestion: Code(s): R09.81 - Nasal congestion Category: Medical (9) Stress: Code(s): F43.9 - Reaction to severe stress, unspecified Category: Medical Plan Physical exam appointment - The patient is a 28-year-old female presenting with management of anxiety and chronic headaches. - Headaches occurring nearly every day for approximately four months. - Reports association with stress and lack of adequate sleep, with anxiety exacerbating symptoms. - Sleep disturbances described as difficulty falling asleep and waking up during the night. - Prior prescription for anxiety medication, currently not being taken. - Reports numbness and swelling in hands, primarily affecting right side, particularly in the morning. - Known scoliosis present since childhood. - Perennial allergic rhinitis contributing to sinus congestion and headaches when nasacort is not used consistently. Health Maintenance - Discussed importance of consistent use of allergy medication to prevent sinus congestion and associated headaches. - Recommended use of wrist splint at night to alleviate carpal tunnel syndrome symptoms. - Advised on sleep hygiene practices to improve sleep pattern and reduce anxiety-related disturbances. - OBGYN visit up-to-date [facility]: [facility] Medications - Previous prescription for anxiety (unspecified, not currently taken). - Nasacort for allergic rhinitis (not taken consistently). 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 - Stress related to school and childcare responsibilities; mother of three children aged 10, 5, and 3. Diagnostic results: Fasting sugar was high in July, strong family history of diabetes UA done today shows normal values Review of Systems - Neurological: Reports headaches nearly daily, anxiety, sleep disturbances. - Musculoskeletal: Reports numbness and swelling in hands, more prominent in the right hand. - Respiratory: Reports allergy-related sinus congestion. - Genitourinary: Reports increased urination. - General: No fever no chills - Neurological: No headaches no dizziness - Ear nose throat: No sore throat no hearing difficulty no ear pain - Cardiovascular: No syncope, no chest pain, no palpitations - Gastrointestinal: No nausea vomiting or diarrhea - Endocrine: No polyuria polydipsia no heat intolerance - Genitourinary: No dysuria - Skin: No new complaints Physical Exam General: Cooperative, healthy appearing, comfortable, no acute distress Orientation: Patient oriented x3 Limitations: None Head: Normal to inspection Ears: Within normal limit visually Nose: Normal external nose present Face and sinus: Normal facial exam Eyes: Appearance normal, extraocular movement intact pupils reactive Neck: Normal visual inspection and supple Respiratory: Normal respiratory effort and able to speak in complete sentences. Clear to auscultation, no stridor Cardiovascular: S1 and S2 GI: Normal to inspection. Soft to palpation and nontender Skin: Turgor normal, no acute findings Neuro: Patient oriented x3, motor sensory intact, balance intact, tandem pass Extremities: Hands are numb and swollen, mostly on the right side. Recommend wrist splint at night. Patient Instructions - Continue consistent daily use of Nasacort for allergy management. - Use wrist splint at night to reduce pressure on the nerves in the hand. - Practice good sleep hygiene by going to bed earlier and managing nighttime anxiety. - Follow up in telemedicine visit in three weeks to reassess symptoms and review any lab results. - Consider resuming prescribed anxiety medication if symptoms persist or worsen. - obesity with BMI of 30.4 need to lose weight Follow-up telemedicine 3 weeks after starting Lexapro and headache Orders: Orders Hemoglobin A1c Today E55.9 - Vitamin D deficiency, unspecified, F41.1 - Generalized anxiety disorder, F43.9 - Reaction to severe stress, unspecified, G44.89 - Other headache syndrome, M41.114 - Juvenile idiopathic scoliosis, thoracic region, R09.81 - Nasal congestion, R20.2 - Paresthesia of skin, R53.83 - Other fatigue, Z00.01 - Encounter for general adult medical examination with abnormal findings Complete Blood Count Auto Diff Today E55.9 - Vitamin D deficiency, unspecified, F41.1 - Generalized anxiety disorder, F43.9 - Reaction to severe stress, unsp ecified, G44.89 - Other headache syndrome, M41.114 - Juvenile idiopathic scoliosis, thoracic region, R09.81 - Nasal congestion, R20.2 - Paresthesia of skin, R53.83 - Other fatigue, Z00.01 - Encounter for general adult medical examination with abnormal findings Comprehensive [place]. Panel Fast Today E55.9 - Vitamin D deficiency, unspecified, F41.1 - Generalized anxiety disorder, F43.9 - Reaction to severe stress, unspecified, G44.89 - Other headache syndrome, M41.114 - Juvenile idiopathic scoliosis, thoracic region, R09.81 - Nasal congestion, R20.2 - Paresthesia of skin, R53.83 - Other fatigue, Z00.01 - Encounter for general adult medical examination with abnormal findings Lipid Panel Today E55.9 - Vitamin D deficiency, unspecified, F41.1 - Generalized anxiety disorder, F43.9 - Reaction to severe stress, unspecified, G44.89 - Other headache syndrome, M41.114 - Juvenile idiopathic scoliosis, thoracic region, R09.81 - Nasal congestion, R20.2 - Paresthesia of skin, R53.83 - Other fatigue, Z00.01 - Encounter for general adult medical examination with abnormal findings Vitamin D 25-OH (D2 and D3) Today E55.9 - Vitamin D deficiency, unspecified, F41.1 - Generalized anxiety disorder, F43.9 - Reaction to severe stress, unspecified, G44.89 - Other headache syndrome, M41.114 - Juvenile idiopathic scoliosis, thoracic region, R09.81 - Nasal congestion, R20.2 - Paresthesia of skin, R53.83 - Other fatigue, Z00.01 - Encounter for general adult medical examination with abnormal findings Medications: Changed From escitalopram oxalate (Lexapro) 10 mg PO DAILY 30 tabs 0RF Anxiety To escitalopram oxalate (Lexapro) 10 mg PO DAILY 90 days 90 tabs 0RF Anxiety
== END 2024-07-03 11:48 | disposition home or self-care (01) ==
PROVIDERS: PCP Internal Medicine; Visit Provider Internal Medicine
DX: Z00.00 Encounter for general adult medical examination without abnormal findings (principal); R20.2 Paresthesia of skin; G44.89 Other headache syndrome; F43.9 Reaction to severe stress, unspecified; F41.1 Generalized anxiety disorder; R53.83 Other fatigue; E55.9 Vitamin D deficiency, unspecified; M41.114 Juvenile idiopathic scoliosis, thoracic region; R09.81 Nasal congestion

== ENCOUNTER → 2024-07-03 11:19 | Outpatient (BNVA) | payer OTHER, SELFPAY | PROVIDERS: PCP Internal Medicine; Visit Provider Internal Medicine | DX: Z00.01 Encounter for general adult medical examination with abnormal findings (principal); R20.2 Paresthesia of skin; F41.1 Generalized anxiety disorder; G44.89 Other headache syndrome; R53.83 Other fatigue; E55.9 Vitamin D deficiency, unspecified; M41.114 Juvenile idiopathic scoliosis, thoracic region; R09.81 Nasal congestion; F43.9 Reaction to severe stress, unspecified | CPT/HCPCS: 96127; 99212; 99395 ==

== ENCOUNTER 2024-07-16 09:16 | Outpatient (REF) | payer OTHER, SELFPAY ==
[2024-07-16 09:51] LABS: MANUAL DIFF FLAG NO
[2024-07-16 10:02] LABS: Basophils Absolute Auto 0.1 X10*3/uL (0.0-0.2); Basophils Percent Auto 1.1 % (0-2); Eosinophils Absolute Auto 0.5 X10*3/uL (0.0-0.4); Eosinophils Percent Auto 9.7 % (0-4); Hematocrit 40.1 % (37.0-47.0); Hemoglobin 13.8 g/dl (12.0-16.0); Imm Gran Abs Auto 0.01 X10*3/uL (0.00-0.03); Imm Gran Pct Auto 0.2 % (0.0-0.4); Lymphocytes Absolute Auto 1.5 X10*3/uL (1.2-4.9); Lymphocytes Percent Auto 29.3 % (20-40); Mean Corpuscular HGB Conc 34.4 g/dl (31.0-35.0); Mean Corpuscular Hemoglobin 30.2 pg (27.0-33.0); Mean Corpuscular Volume 87.7 fL (80.0-98.0); Mean Platelet Volume 10.7 fL (9.4-12.3); Monocytes Absolute Auto 0.5 X10*3/uL (0.1-1.2); Monocytes Percent Auto 9.1 % (2-11); Neutrophils Absolute Auto 2.7 x10*3/uL (2.0-8.3); Neutrophils Percent Auto 50.6 % (45-73); Platelet Count 240 X10*3/uL (160-400); Red Blood Count 4.57 X10*6/uL (4.20-5.50); Red Cell Distribution Width 11.9 % (11.0-16.0); White Blood Count 5.3 X10*3/uL (4.8-10.8)
[2024-07-16 10:10] LABS: Estimated Average Glucose 108 mg/dL; Hemoglobin A1C 122.0172 umol/L; Hemoglobin A1c % 5.4 % (<6.0); Total Hemoglobin (HGBA1C) 3485.9467 umol/L
[2024-07-16 10:38] LABS: Albumin Level 4.2 g/dL (3.5-5.0); Alkaline Phosphatase 66 U/L (39-117); Anion Gap 10 (12-20); Aspartate Amino Transferase 20 U/L (5-31); Bilirubin Total 0.5 mg/dL (0.0-1.0); Blood Urea Nitrogen 12 mg/dL (9-16); Calcium 8.9 mg/dL (8.4-10.2); Carbon Dioxide 26 mmol/L (22-29); Chloride 109 mmol/L (96-108); Cholesterol 145 mg/dL (<200); Estimated Glomerular Filt Rate > 60; Glucose Fasting 108 mg/dL (60-99); HDL Cholesterol 34 mg/dL (>40); LDL Cholesterol Calculated 98 mg/dL (<100); Sodium 141 mmol/L (135-145); Total Protein 6.7 g/dL (6.5-8.0); Triglycerides 68 mg/dL (<150)
[2024-07-16 10:55] LABS: Alanine Aminotransferase 23 U/L (0-31)
[2024-07-20 15:52] LABS: Vitamin D 25-OH, D2 <4 ng/mL; Vitamin D 25-OH, D3 21 ng/mL; Vitamin D 25-OH, Total 21 ng/mL (30-100)
== END 2024-07-16 09:17 | disposition home or self-care (01) ==
LOC: HO.HMGCLDS 09:16
PROVIDERS: PCP Internal Medicine; Visit Provider Internal Medicine
DX: Z00.01 Encounter for general adult medical examination with abnormal findings (principal); R53.83 Other fatigue; E55.9 Vitamin D deficiency, unspecified; M41.114 Juvenile idiopathic scoliosis, thoracic region; R09.81 Nasal congestion; R20.2 Paresthesia of skin; F43.9 Reaction to severe stress, unspecified; F41.1 Generalized anxiety disorder; G44.89 Other headache syndrome
CPT/HCPCS: 36415; 80053; 80061; 82306; 83036; 85025

== ENCOUNTER 2024-07-23 08:22 | Outpatient (AMB) | payer OTHER, SELFPAY ==
--- NOTE | 2024-07-23 08:45 | MHC.PC.OV ---
Intake Visit Reasons: 3 weeks TH follow up Allergies No Known Allergies [No Known Allergies*] Allergy (Verified 07/23/24 08:49) Medication List - Last Reconciled 07/23/24 by Tarun Harmon MD cetirizine (Zyrtec) 10 mg PO DAILY 90 days escitalopram oxalate (Lexapro) 10 mg PO DAILY 90 days fluticasone propionate 50 mcg/actuation (Allergy Relief (fluticasone)) 1 spray intranasal DAILY 30 days Tobacco use date assessed: 07/23/24 Dental Screening Dental Screen Date: 07/23/24 Did you have a dental visit in the last 12 months?: Yes Did you have a dental problem in the last 6 months where you did not have access to dental care?: No Was dental information given to patient?: Patient has dentist HPI 3 weeks TH follow up HPI Details Patient is a 28-year-old female this is a telemedicine visit Patient continued to have severe nasal congestion Currently also having yellow discharge from her nose She has been evaluated by waiter/waitress cafeteria who recommended allergy shots However patient decided not to go through with it I am prescribing prednisone and antibiotic for her sinusitis She is already on cetirizine I have added montelukast as well Labs done shows she patient is prediabetic with blood sugar fasting 108 Vitamin-D level is low she need to start the supplement Anxiety is much improved with Lexapro 10 mg she is to continue that She will have another follow-up in 3 weeks for montelukast [facility] Medical History Migraine headache Scoliosis Surgical History Hx of tubal ligation Family History Maternal Grandmother Diabetes mellitus CVD (cardiovascular disease) Social History Household Members: Spouse and Children Housing: House Alcohol intake: current Alcohol intake frequency: holidays/special occasions only Patient Tobacco Use Status: Never used Tobacco e-Cigarette/Vaping Use: Never Used Second Hand Smoke Exposure: No service: No Current occupational status: employed 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 1. Little interest or pleasure in doing things: several days 2. Feeling down, depressed, or hopeless: more than half the days 3. Trouble falling or staying asleep, or sleeping too much: more than half the days 4. Feeling tired or having little energy: several days 5. Poor appetite or overeating: not at all 6. Feeling bad about yourself - or that you are a failure or have let yourself or your family down: not at all 7. Trouble concentrating on things, such as reading the newspaper or watching television: several days 8. Moving or speaking so slowly that other people could have noticed. Or the opposite - being so fidgety or restless that you have been moving around a lot more than usual: several days 9. Thoughts that you would be better off or of hurting yourself in some way: not at all Total score: 8 Depression Screening Interpretation: Negative Depression Screening Done: Yes 15408 - PHQ-9 Billing: Yes Source: Developed by Drs. Mohinder Turpin, Sandee Corcoran, Wicho Elizondo and colleagues, with an educational alan from [employer]. Thrive Questionnaire Date Thrive assessed: 07/23/24 I am a: Patient What is your living situation today?: I have a steady place to live Within the past 12 months, did the food you bought not last and you didn't have the money to get more?: Never true Within the past 12 months, did you worry whether your food would run out before you got money to buy more?: Never true Do you have trouble paying for medicines?: No Do you have trouble getting transportation to medical appointments?: No Do you have trouble paying your heating and electricity bill?: Yes Do you have trouble taking care of your child, family member or friend?: No Do you have trouble with day-to-day activities such as bathing, preparing meals, shopping, managing finances, etc.?: No Are you currently unemployed and looking for a job?: Yes Are you interested in more education?: No Please select the resources that you would like help with: Utilities and Daily support Currently or been in a relationship where the following occur: No concerns reported THRIVE Score: 1 AUDIT C Alcohol Use Questionnaire (AUDIT-C) 1. How often do you have a drink containing alcohol?: Never 3. How often do you have six or more drinks on one occasion?: Never Total Score: 0 Score Reviewed/Action Taken: Yes JOANNA-7 AMB Questionnaire JOANNA-7 Date JOANNA - 7 assessed: 07/23/24 Feeling nervous, anxious, or on edge: 3 = Nearly every day Not being able to stop or control worryin = Several days Worrying too much about different things: 2 = More than half the days Trouble relaxin = Several days Being so restless that it is hard to sit still: 1 = Several days Becoming easily annoyed or irritable: 2 = More than half the days Feeling afraid as if something awful might happen: 1 = Several days Total JOANNA-7 score (0-4 normal; 5-9 mild; 10-14 moderate; 15-21 severe): 11 Source: Developed by Drs. Mohinder Turpin, Sandee Corcoran, Wicho Elizondo and colleagues, with an educational alan from [employer]. JOANNA-7 Assessment Billing JOANNA-7 Assessment Tool: JOANNA-7 Assessment 97881 Review of Systems Const Denies chills and Denies fever(s) ENT Denies epistaxis Card Denies chest pain Resp Denies chest congestion and Denies hemoptysis GI Denies diarrhea and Denies nausea Skin/Breast Denies rash Neuro Reports no additional complaints Psych Reports no additional complaints Endo Reports no additional complaints Physical exam (Primary Care) Tobacco/Smoking Status: Tobacco use Status Tobacco use date assessed 07/23/24 07/23/24 08:51 Patient Tobacco Use Status Never used Tobacco 07/23/24 08:47 e-Cigarette/Vaping Use Never Used 07/23/24 08:47 PHQ-9: PHQ-9 Score PHQ-9: Total score 8 07/23/24 09:25 Depression Screening Interpretation: Negative Thrive Assessment: Date of Thrive Assessment Date Thrive assessed 07/23/24 07/23/24 08:51 Currently or been in a relationship where the following occur: No concerns reported Telehealth Telehealth Telehealth Platform: [facility] Location of provider rendering services: practice address Location of patient: address on file Patient Identification confirmed using: Name, : Yes Telehealth method: voice only Patient verbally consented to treatment: Yes Patient verbally consented to billing insurance company: Yes Patient informed of any privacy concerns related to visit: Yes Minutes spent on Phone/Video with Pt.: 13 Coding Level of Care Code Tele Est Pt Level 4 (39724) Diagnoses Acute recurrent maxillary sinusitis J01.01 Sinusitis location: maxillary Recurrence: recurrent Sinus headache R51.9 Anosmia R43.0 Deviated nasal septum J34.2 Vitamin D deficiency E55.9 Pre-diabetes R73.03 Environmental allergies Z91.09 Additional Codes JOANNA-7 Assessment Billing - JOANNA-7 Assessment Tool: JOANNA-7 Assessment 21717 ([id number]) PHQ-9 - 79656 - PHQ-9 Billing: Yes ([id number]) Assessment & Plan Assessment & Plan (1) Acute sinusitis: Code(s): J01.90 - Acute sinusitis, unspecified Category: Medical Qualifiers: Sinusitis location: maxillary Recurrence: recurrent Qualified Code(s): J01.01 - Acute recurrent maxillary sinusitis (2) Sinus headache: Code(s): R51.9 - Headache, unspecified Category: Medical (3) Anosmia: Code(s): R43.0 - Anosmia Category: Medical (4) Deviated nasal septum: Code(s): J34.2 - Deviated nasal septum Category: Medical (5) Vitamin D deficiency: Code(s): E55.9 - Vitamin D deficiency, unspecified Category: Medical (6) Pre-diabetes: Code(s): R73.03 - Prediabetes Category: Medical (7) Environmental allergies: Code(s): Z91.09 - Other allergy status, other than to drugs and biological substances Category: Medical Plan Patient is a 28-year-old female this is a telemedicine visit Patient continued to have severe nasal congestion Currently also having yellow discharge from her nose She has been evaluated by waiter/waitress cafeteria who recommended allergy shots However patient decided not to go through with it I am prescribing prednisone and antibiotic for her sinusitis She is already on cetirizine I have added montelukast as well Labs done shows she patient is prediabetic with blood sugar fasting 108 Vitamin-D level is low she need to start the supplement Anxiety is much improved with Lexapro 10 mg she is to continue that She will have another follow-up in 3 weeks for montelukast 30 minutes spent in care of this patient Medications: New azithromycin Take 2 tablets today then 1 daily 250 mg PO ONCE 5 days 6 tabs 0RF J06.9 - Acute upper respiratory infection, unspecified prednisone 10 mg PO DAILY 5 days 5 tabs 0RF montelukast 10 mg PO .q am 30 days 30 tabs 0RF Changed From fluticasone propionate 50 mcg/actuation (Allergy Relief (fluticasone)) administer into each nostril 1 spray intranasal DAILY 30 days 1 mL 0RF R09.81 - Nasal congestion To fluticasone propionate 50 mcg/actuation (Allergy Relief (fluticasone)) administer into each nostril 1 spray intranasal BID 30 days 1 mL 5RF R09.81 - Nasal congestion Refilled cetirizine (Zyrtec) 10 mg PO DAILY 90 days 90 tabs 1RF Nasal congestion escitalopram oxalate (Lexapro) 10 mg PO DAILY 90 days 90 tabs 0RF Anxiety
== END 2024-07-23 09:32 | disposition home or self-care (01) ==
LOC: HO.HMCC 08:22
PROVIDERS: PCP Internal Medicine; Visit Provider Internal Medicine
DX: J01.01 Acute recurrent maxillary sinusitis (principal); R51.9 Headache, unspecified; R43.0 Anosmia; J34.2 Deviated nasal septum; E55.9 Vitamin D deficiency, unspecified; R73.03 Prediabetes; Z91.09 Other allergy status, other than to drugs and biological substances

== ENCOUNTER → 2024-07-23 08:22 | Outpatient (BNVA) | payer OTHER, SELFPAY | PROVIDERS: PCP Internal Medicine; Visit Provider Internal Medicine | DX: J01.01 Acute recurrent maxillary sinusitis (principal); J06.9 Acute upper respiratory infection, unspecified; J34.2 Deviated nasal septum; R51.9 Headache, unspecified; R43.0 Anosmia; E55.9 Vitamin D deficiency, unspecified; R73.03 Prediabetes; R09.81 Nasal congestion; Z91.09 Other allergy status, other than to drugs and biological substances | CPT/HCPCS: 96127 ==

== ENCOUNTER → 2024-08-13 08:22 | Outpatient (BNVA) | payer OTHER, SELFPAY | PROVIDERS: PCP Internal Medicine; Visit Provider Internal Medicine ==

== ENCOUNTER 2024-11-24 10:10 | Outpatient (AMB) | payer OTHER, SELFPAY ==
--- NOTE | 2024-11-24 10:21 | MHC.OFFVIS ---
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 Rubber Block Layer: Rubber Block Layer Present (Cele) Accompanied by: Self / Same As Patient Allergies No Known Allergies [No Known Allergies*] Allergy (Verified 11/24/24 10:27) Medication List - Last Reconciled 11/24/24 by Shani Hoffman CNM cetirizine (Zyrtec) 10 mg PO Q12H 90 days escitalopram oxalate (Lexapro) 10 mg PO DAILY 90 days fluticasone propionate 50 mcg/actuation (Allergy Relief (fluticasone)) 1 spray intranasal BID montelukast 10 mg PO .q am 90 days Is last menstrual period known: Yes Last menstrual period: 10/23/24 Post menopausal: No Patient : No HPI HPI 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 She had her tubes tied so she is not worried about getting her LMP was 10/23/24. She did have an unusual sharp bad pain and her right side about go she did have it 1 other time but she does not remember exactly when it was. She would like to get that checked out periods she also gets migraines. She is getting henriquez hair and she thinks it is the kids. 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 She has noticed she is gaining weight. 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) Sexual orientation: Straight/Heterosexual Gender identity: Female Cognitive needs: No Hearing needs: No Vision needs: No Female Reproductive History Menstrual Age of Menarche: 13 Duration of menses: 3-5 days Date of last menstrual period: 10/23/24 control method: none Total pregnancies: 3 Full term: 3 Date of last pap smear: 09/18/23 (negative hpv, negative pap smear) History of abnormal pap smear: No Physical Exam Vital Signs: Last Vital Signs BP 112/70 11/24/24 10:28 BMI result Body Mass Index 31.0 Const General: healthy appearing, comfortable, no acute distress, well developed and alert Nutritional Appearance: average body habitus Orientation/consciousness: patient oriented x3 Limitations: no limitations HEENT Head: Yes normocephalic Neck Neck: Yes normal visual inspection Chest Chest palpation & inspection: normal inspection of the chest Breast/axilla inspection: normal inspection of the breasts and normal inspection of the axillae Breast/axilla palpation: normal palpation of the breasts and normal palpation of the axillae Resp Effort & Inspection: normal respiratory effort GI Inspection: Yes normal to inspection, No Abdominal wall edema and No distended Palpation (GI): Soft to palpation and nontender Other: External exam within limits vagina pink and moist cervix multiparous pink smooth with normal appearing whitish, mucus, possibly consistent with luteal phase patient not concerned at all about STIs so declined cultures. Cervix long close thick mobile nontender no adnexal tenderness palpated good tone with Kegel. General: Yes bladder normal to palpation External Female Exam: normal external appearance and normal appearance of the urethra Speculum Exam - Vagina: normal appearance of the vagina, normal palpation and normal vaginal discharge Speculum Exam - Cervix: normal appearance of the cervix, normal palpation and nontender Bimanual exam- vagina & uterus: normal bimanual exam, normal palpation, uterine size normal, bladder normal to palpation, consistency normal, normal palpation, uterine mobility normal, uterine shape normal, No Cervical tenderness present, non-tender and no cervical motion tenderness Bimanual Exam- Adnexa, other: normal adnexae, no masses, normal and No adnexal tenderness Neuro General: patient oriented x3 Results Reviewed Results Reviewed: Name: Charmaine Muhammad Age/Sex: 27/F Attending: Mehran Salinas MD : 1995 Submitted by: Mehran Salinas MD Copies to: MR #: [id number] Status: DEP REF Collected: 09/18/23 Location: [facility] Received: 09/19/23 Interpretation Satisfactory for evaluation. Mild inflammation. Negative for intraepithelial lesion or malignancy. HPV mRNA E6/E7: NOT DETECTED This assay detects E6/E7 viral messenger RNA (mRNA) from 14 high-risk HPV types (16, 18, 31, 33, 35, 39, 45, 51, 52, 56, 58, 59, 66, 68) HPV testing performed by [employer], [place], [place]. See reference laboratory portion of the EMR for entire report. Clinical Information LMP: 09/11/2023 Previous PAP test: 2020, Unknown findings Material Received ThinPrep-Cervical Electronically Signed By: JOSIAS Pereira (ASCP) 09/30/23 0712 The Pap Test is a screening procedure with the inherent possibility of both false negative and false positive results. Results should be interpreted in the context of historic and current clinical findings. Reliability of the Pap Test is enhanced by performing the test on a regular repetitive basis. Patient: Charmaine Muhammad Age/Sex: 27/F MR#: [id number] Page 1 of 1 Preg test done today here is negative Assessment & Plan Assessment & Plan (1) Well woman exam with routine gynecological exam: Code(s): Z01.419 - Encounter for gynecological examination (general) (routine) without abnormal findings Category: Medical (2) Pelvic pain: Code(s): R10.2 - Pelvic and perineal pain Category: Medical (3) Cervical cancer screening: Code(s): Z12.4 - Encounter for screening for malignant neoplasm of cervix Category: Medical Plan -----Discussed in this visit the following: healthy balanced diet, regular and consistent exercise, getting recommended health screens, doing the best she can for her particular health concerns, kegel exercises, pap smear screening and followup recommendations, mammography screening and SBE, normal changes in cycles in her life stage--- . Reviewed her health it is wonderful that she has gone back to school she is got a couple of weeks break coming up and plans to try to get back to the gym so she can exercise in reverse the trend of gaining weight. She is determined to finish her degree though which is admirable. Discussed the symptom and timing of her pain which is consistent with mid cycle ovulatory pain discussed the normal menstrual cycle and what happens in it. For her peace of mind we will get an ultrasound and see if anything is notable. We will also do a test before she leaves --it is negative. Orders: Orders US pelvic and transvaginal Today R10.2 - Pelvic and perineal pain, Z01.419 - Encounter for gynecological examination (general) (routine) without abnormal findings, Z12.4 - Encounter for screening for malignant neoplasm of cervix Coding Level of Care Code Est Pt Prev Care 18-39y(72789) Diagnoses Well woman exam with routine gynecological exam Z01.419 Pelvic pain R10.2 Cervical cancer screening Z12.4
[2024-11-24 10:28] VITALS: BP 112/70; BMI 31.0
--- OUTSIDE RECORDS SUMMARY | 2024-11-24 11:11 | XMS_ITS | Clinical Summary ---
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 Name Role Phone Unavailable Primary Care Provider Unavailabl e Social History Tobacco Use Types Packs/Day Years Used Date Smoking Tobacco: Never Assessed Comments Unknown Sex and Gender Information Value Date Recorded Sex Assigned at Not on file Legal Sex Female 12:36 PM EST Gender Identity Not on file Sexual Orientation Not on file Plan of Treatment Health Maintenance Due Date Last Done Comments DTaP,Tdap,and Td Vaccines (1 - Tdap) 2012 Hepatitis B Vaccines (1 of 3 - 19+ 3-dose series) 2012 Cervical Cancer Screening: P ap Smear 2014 COVID-19 Vaccine ( - 2023-2 5 season) 2024 Influenza Vaccine (Season Ended) 2025 HIB Vaccines Aged Out No longer eligi ble based on patient's age to complete this topic HPV Vaccines Aged Out No longer eligi ble based on patient's age to complete this topic Hepatitis A Vaccines Aged Out No long er eligible based on patient's age to complete this topic IPV Vaccines Aged Out No longer eligi ble based on patient's age to complete this topic MMR Vaccines Aged Out No longer eligi ble based on patient's age to complete this topic Meningococcal ACWY Vaccine Aged Out N o longer eligible based on patient's age to complete this topic Meningococcal B Vaccine Aged Out No l onger eligible based on patient's age to complete this topic Pneumococcal Vaccine: Pediat rics (0 to 5 Years) and At-Risk Patients (6 to 64 Years) Aged Out No longer eligible b ased on patient's age to complete this topic RSV Immunization Patients Un emelina 20 months Aged Out No longer eligible b ased on patient's age to complete this topic Varicella Vaccines Aged Out No longer eligible based on patient's age to complete this topic
--- OUTSIDE RECORDS SUMMARY | 2024-11-24 11:11 | XMS_ITS | Data Portability ---
Author Organization [place] - [facility], Allergy Address [address] [place] [phone] Care Team Providers Care Pack Room Operator Name Role Phone ZAIDA LEIGH Primary Care Provider Assessment Encounter Date Assessment Date Assessment LastModified by Organization Details LastModified Time 12/19/2023 12/19/2023 Patient has nasal congestion with sneezing. Her examination today shows clear mucus drainage with edema of her nasal cavity. Nasal endoscopy was performed with no evidence of nasal polyp or infection at this time. She has a mild septal deflection to the left with bilateral inferior turbinate hypertrophy. She has not found any relief with [id number] allergy medication and I believe allergy skin testing may lead us to a treatment for her symptoms [email or web address] Not available 12/19/2023 11:54:44 02/14/2024 02/14/2024 The patient has significant allergies. We discussed lifestyle modifications, medical therapy versus immunotherapy. The patient is an excellent candidate for immunotherapy with either SCIT vs SLIT. This is at least a 3-5 year commitment and symptoms are not expected to improve quickly. Partial treatment will not result in success of therapy. They will need to followup with me every 6 months to determine their compliance and success. They are interested in proceeding with immunotherapy and will contact our office to schedule. I have prescribed an epi pen and instructed them to bring it with them the first day of their therapy to be certain that they are comfortable with its use. While they are in therapy they may continue to use antihistamine allergy medications as well as topical nasal sprays to help manage their symptoms. [email or web address] Not available 02/13/2024 12:42:02 Plan of Treatment Reminders Order Date Submit Date Provider Last Modified By Organization Details Last Modified Time Details Appointments None recorded. Lab None recorded. Referral None recorded. Procedures allergen immunother apy; multiple injections (PROC) 2023 024 [email or web address] Not available 4 15:41:38 allergy testing, skin prick (PROC) 2023 024 [email or web address] Not available 4 11:18:29 intraderma l allergy skin testing (PROC) 2023 024 [email or web address] Not available 4 11:18:41 pulmonary function test procedure (PROC) 2023 024 [email or web address] Not available 4 11:18:57 pulse oximetry (PROC) 2023 024 [email or web address] Not available 4 11:18:50 Surgeries None recorded. Imaging None recorded. Medication Orders EpiPen 2-Angel 0.3 mg/0.3 mL injection, auto-injec tor 2023 024 [facility] #[id number], [address] [place], [address], 09:40:01 Patient TargetsNo targets recorded. Patient Instructions Encounter Date Encounter Id Patient Instructions Last Modified By Organization Details Last Modified Time 01/27/2024 [id number] Nursing Documentation for Allergy Testing: Ordering Provider {{Dr. Janel Gannon* Dr. Darrion Martin}} Weight:lbs:? ? ?kg: ? ? ? PFT {{Yes* no}} With Bronchodilator {{Yes* no}} Dr. mckeon needed to proceed with allergy testing? {{Yes No*}} {{Dr. Jnael Martin}} ok'd testing {{Yes No* Pulmonar y Clearance PCP Clearance RAST}}Hi story of Asthma:{{Yes No*}} Asthma Meds: ? ? ?Last used:? ? ? Asthma exacerbated by: ? ? ? Chance that : {{Yes No* Not Sure N/A}} Fear of needles: {{Yes No*}} Regular medications reviewed in Computer: {{Yes* No}} Medication allergies: {{Reviewed* NKDA}} Antihistamine use: {{Yes No*}} Medications used: ? ? ? Food Allergies: ? ? ? none Any foods make your mouth feeling itchy: {{Yes No*}} If yes: ? ? ? History of severe reaction where had to go to ER? {{Yes* No}} If yes details: ? ? ? PT don't recall what caused it Type of heat in home: {{Baseboard Forced Air Radiator* othe r}} Pets: {{Yes* No}} If yes: ? ? ?DOG Smoker: {{Yes Current Never* For alexander}} If former smoker-how much ? ? ? / day for how long ? ? ? When quit ? ? ? years ago Smoking now-how much ? ? ? /day for how long ? ? ? 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 ? ?congestion, sneezing, itchy eyes Frequency {{Seasonally Year Round*}} Spirometry Contraindications: Heart attack in the last 3 months: {{Yes No*}} Major surgery in last 3 months: {{Yes No*}} Detached retina(serious eye issues) in last 2 months: {{Yes No*}} Hospitilization in last month: {{Yes No*}} Proceed with PFT {{Yes* No}} Dr. approval needed: {{Yes No*}} Nursing Notes: Pt tolerated test well {{Yes* No}} Benadryl cream to test sites {{Yes* No}} Patient became syncopal-placed in supine position {{Yes No*}} Large reactions to MQT, reschedule IDT for a different date {{Yes* No}} Other: ? ? ? Written by: {{Ansley Shetty, GEORGINA Leo, CUBA Gustafson*}} [email or web address] Not available 01/27/2024 11:04:06 Reason for Referral None Reported. Problems Name Problem SNOMED Code Status Onset Date Resolution Date Notes Provider Name and Address Organization Details Recorded Time Hypertrop hy of nasal turbinate s 16548338 Active 2019 Hypertroph y of nasal turbinates ; Note: Date Diagnosed: 09/03/2019 10:55 AM (J34.3) Not Available formerly [facility] 4 02:44:49 Allergic rhinitis 86667859 Active 2019 Perennial allergic rhinitis; Note: Date Diagnosed: 09/03/2019 10:55 AM (J30.89) Note: Date Diagnosed: 09/03/2019 10:55 AM (J30.89) Not Available formerly [facility] 4 01:07:35 Nasal congestio n 83213711 Active 2019 Nasal congestion ; Note: Date Diagnosed: 09/03/2019 10:55 AM (R09.81) Not Available formerly [facility] 4 02:44:51 Perennial allergic rhinitis 910293102 Active 2023 JENAE GANNON MD [address] [place] [address], [phone] , [facility] 4 11:53:28 Problem Notes None recorded. Procedures Surgical History Date Name Laterality Status Provider Name and Address Organization Details Recorded Time 01/28/20 24 Allergy Testing-Full completed CUBA HUANG [address] [place] [address], [phone], [facility] 01/28/2024 13:45:31 01/27/20 24 Allergy Testing Modified- Quantitative Testing (MQT) Only completed CUBA HUANG [address] [place] [address],[address], [phone], [facility] 01/27/2024 11:17:39 12/19/19 24 NasalEndoscopy_D P completed JENAE GANNON MD [address] [place] [address],[address], [phone], [facility] 12/19/2023 11:53:03 10/23/19 21 ligation of fallopian tube completed Ivette Burch [facility] 12/19/2023 11:27:08 Imaging Results None recorded. Procedure Notes None recorded. Medical Equipment None Reported. Medications Name Sig Start Date Stop Date Status Note LastModified by Organization Details LastModified Time prednisone 10 mg tablet TAKE 1 TABLET BY MOUTH EVERY DAY FOR 7 DAYS 01/26 completed Not Available Not Available Not Available cetirizine 10 mg tablet TAKE 1 TABLET ORALLY DAILY FOR NASAL CONGESTIO N FOR 90 DAYS active Not Available Not Available No t Available meloxicam 15 mg tablet TAKE 1 TABLET ORALLY DAILY FOR 14 DAYS 01/26 completed Not Available Not Available Not Available prednisone 20 mg tablet TAKE 1 TABLET BY MOUTH DAILY FOR 5 DAYS 01/26 completed Not Available Not Available Not Available metronidazo le 500 mg tablet 500 MG ORALLY 2 TIMES A DAY FOR 7 DAYS TAKE WITH FOOD, AVOID ALCOHOL AND VINEGAR PRODUCTS 01/26 completed Not Available Not Available Not Available epinephrine 0.3 mg/0.3 mL injection, auto-inject or TAKE 1 AUTO BY INJECTION ROUTE FOR 180 DAYS, FOR ANAPHYLAX IS. active Not Available Not Available No t Available fluticasone propionate 50 mcg/actuati on nasal spray,suspe nsion SPRAY 1 SPRAY INTRANASA LLY DAILY FOR 30 DAYS ADMINISTE R INTO EACH NOSTRIL active Not Available Not Available No t Available escitalopra m 10 mg tablet TAKE 1 TABLET ORALLY DAILY FOR ANXIETY active Not Available Not Available No t Available Vitamin D3 25 mcg (1,000 unit) capsule TAKE 1 CAPSULE ORALLY DAILY FOR 90 DAYS active Not Available Not Available No t Available Vitals Date Recorded Body height Body mass index (BMI) Body weight Heart rate Oxygen saturation Oxygen saturation in Arterial blood by Pulse oximetry Systolic blood pressure Diastolic blood pressure Provider Name and Address Organization Details Last Updated DateTime 4 160.02 cm 26.6 kg/m2 57244.8 6 g 76 /min 97 % 97 % 105 mm[Hg] 74 mm[Hg] CUBA HUANG [address], [phone] [place], [place] - [facility] 4 10:45:11 Date Recorded Oxygen saturation Oxygen saturation in Arterial blood by Pulse oximetry Heart rate Systolic blood pressure Diastolic blood pressure Provider Name and Address Organization Details Last Updated DateTime 4 98 % 98 % 80 /min 110 mm[Hg] 78 mm[Hg] CUBA HUANG 100 [facility], [place], [phone], [place] - [facility] 13:25:40 Date Recorded Body height Body mass index (BMI) Body weight Provider Name and Address Organization Details Last Updated DateTime 12/19/2023 160.02 cm 26.6 kg/m2 36619.86 g Ivette Burch [place] - [facility] 12/19/2023 11:40:01 Social History None recorded. Functional Status None recorded. Mental Status None recorded. Family History Nothing Reported. Medical History Condition Response Migraines Y Anxiety Y Gynecological HistoryNo gynecological history recorded. Obstetrics History GPAL:G 0 P 0 0 0 0 Past Encounters Encounter ID Performer Location Encounter Start Date Encounter Closed Date Diagnosis/Indication Diagnosis SNOMED-CT Code Diagnosis ICD10 Code Diagnosis Note [id number] JENAE GANNON MD [facility] [address] [address] 12/19/2023 11:13:07 12/19/2023 12:13:40 Allergic rhinitis 07262921 J30.9 Perennial allergic rhinitis 758397534 J30.89 [id number] FRANCIS GUSTAFSON [facility] 100 [facility],[place] [address] [place] [address] 01/27/2024 10:35:03 01/29/2024 13:23:45 Allergic rhinitis 20166683 J30.9 [id number] FRANCIS GUSTAFSON [facility] 100 [facility] [address] [place] [address] 01/28/2024 13:01:52 01/29/2024 13:18:30 Allergic rhinitis 10451595 J30.9 [id number] JENAE GANNON MD [facility] [address] [address] 02/14/2024 09:14:57 02/14/2024 09:42:10 Allergic rhinitis 83728341 J30.9 Health Concerns Section Related Observation LastModified by Organization Detai ls LastModified Time None Recorded Concern Status LastModified by Organization Details LastModified Time None Recorded Advance Directives Directive None Recorded Payers Insurance Date Sequence Insurance Name Policy Number Policy Corbin Covered Member ID Corbin Member ID Guarantor Name 02/13/2024 1 [place] [facility] Charmaine Watson [place] [id number] Charmaine [place] 01/27/2024 1 [employer] (MEDICAID HMO) Charmaine [place] [id number] Charmaine [place] 01/22/2024 1 [facility] [id number] Charmaine M [place]agros [id number] Charmaine [place] 01/23/2024 2 [facility] DIRECT [facility]CTORCARE TYPE I (HMO) [id number] Charmaine M [place] [id number] Charmaine [place] 02/13/2024 1 [employer] (MEDICAID HMO) Charmaine [place] [id number] Charmaine [place] 01/22/2024 1 [place] [facility] Charmaine Watson [place] [id number] Charmaine [place] Notes Date Note Type Note Provider Name and Address Organization Details Recorded Time 12/19/2023 text/html nasal congestion poor sense of smell but occasional OK on right sideonset years agodoes not recall nasal traumano imaging of sinusno epistaxistobacco - deniestried nasal spray flonase - no reliefzyrtec also not helpful+sneeze in work - [facility], [facility] advocate JENAE GANNON MD [address] [place] [address], [phone], [facility] 12/19/2023 11:55:08 02/14/2024 text/html Allergic rhinitis01/28/24 Allergy skin testing - Syriac planting, cockroach, dust, Melissa, mold, cat, dog nasal congestionpoor sense of smell but occasional OK on right sideonset years agodoes not recall nasal traumano imaging of sinusno epistaxistobacco - deniestried nasal spray flonase - no reliefzyrtec also not helpful+sneeze in [facility] advocate JENAE GANNON MD [address] [place] [address], [phone], [facility] - [facility] 02/14/2024 09:45:16 OBGyn Episode No OBEpisode recorded.
== END 2024-11-24 11:44 | disposition home or self-care (01) ==
LOC: HO.HWSM 10:10
PROVIDERS: PCP Internal Medicine; Visit Provider Advanced Practice Midwife
DX: Z01.419 Encounter for gynecological examination (general) (routine) without abnormal findings (principal); R10.2 Pelvic and perineal pain
CPT/HCPCS: 99395; 99459

== ENCOUNTER → 2024-11-24 10:10 | Outpatient (BNVA) | payer OTHER, SELFPAY | PROVIDERS: PCP Internal Medicine; Visit Provider Advanced Practice Midwife | DX: Z01.419 Encounter for gynecological examination (general) (routine) without abnormal findings (principal); Z12.4 Encounter for screening for malignant neoplasm of cervix; R10.2 Pelvic and perineal pain | CPT/HCPCS: 99395; 99459 ==

== ENCOUNTER 2024-12-09 10:30 | Outpatient (AMB) | payer OTHER, SELFPAY ==
--- NOTE | 2024-12-09 11:10 | MHC.OFFWIV ---
Intake Vital Signs 12/09/24 11:14 Height 5 ft 3 in Weight 174 lb 6 oz BMI 30.9 BP 122/88 Blood Pressure Location Lt brachial Position Sitting Respiration 16 Pulse 73 Pulse Source Pulse Oximeter Temp 97.7 F Temp Source Oral Pulse Oximetry (%) 98 Oxygen Delivery Method Room Air Intake Visit Reasons: EP chest pain, SOB & migraines Intake Note: EP here c/o chest pain for 4 days , SOB, migranes for a week and 2 days Patient Tobacco Use Status: Never used Tobacco Soaping Department Supervisor Required: No Is last menstrual period known: Yes Last menstrual period: 11/26/24 Post menopausal: No Patient : No Allergies No Known Allergies [No Known Allergies*] Allergy (Verified 12/09/24 11:13) Do you need a note to return to daycare/school/sports/work: No HPI HPI Comments History of Present Illness Details History of Present Illness - The patient is a 29-year-old female presenting with worsening migraines with 1 episode of blurry vision for 2-3 mins that self resolved and chest pain. - Over the last week, the patient's migraines have been persistent despite the use of Tylenol and ibuprofen, which previously provided relief. - The patient has attempted Excedrin without success. - Symptoms accompanying the migraines include nausea, light sensitivity, and sound sensitivity, but no vomiting. - The patient also experienced a brief episode of blurred vision lasting two to three minutes four days ago. - The patient reports episodes of shortness of breath and increased daytime sleepiness, which is unusual for her. - She has experienced chills but is uncertain about the presence of fever. - The patient has a history of an epileptic seizure but is not currently on any anti-seizure medications. - Her medical history includes allergies and migraines. Physical Exam General: Cooperative, healthy appearing, comfortable, no acute distress and well developed Orientation: Patient oriented x3 Limitations: No limitations Head: Normal to inspection Ears: Hearing grossly normal bilaterally Nose: Normal External nose present Face and sinus: Normal facial exam Eyes: Appearance normal, both eyes and all related structures, but reported episode of blurred vision lasting 2-3 minutes Neck: Normal visual inspection and Yes full ROM Respiratory: Normal respiratory effort and able to speak in complete sentences. Skin: No rashes or lesions noted Neuro: Patient oriented x3, history of migraines, past epileptic seizure Extremities: Normal to inspection [facility] Medical History (Updated 12/09/24 @ 11:42 by Mila Carrillo PA-C) Migraine headache Scoliosis Surgical History Hx of tubal ligation Family History Maternal Grandmother Diabetes mellitus CVD (cardiovascular disease) Social History Household Members: Spouse and Children Housing: House Alcohol intake: current Alcohol intake frequency: holidays/special occasions only Patient Tobacco Use Status: Never used Tobacco e-Cigarette/Vaping Use: Never Used Second Hand Smoke Exposure: No Patient : No service: No Current occupational status: employed 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) Sexual orientation: Straight/Heterosexual Gender identity: Female Cognitive needs: No Hearing needs: No Vision needs: No Female Reproductive History Menstrual Age of Menarche: 13 Date of last menstrual period: 11/26/24 Review of Systems Const All systems reviewed & are unremarkable except as noted in HPI and below Physical Exam Vital Signs: Last Vital Signs Temp 97.7 F 12/09/24 11:14 Pulse 73 12/09/24 11:14 Resp 16 12/09/24 11:14 BP 122/88 12/09/24 11:14 Pulse Ox 98 12/09/24 11:14 Oxygen Delivery Method Room Air 12/09/24 11:14 BMI result Body Mass Index 30.9 Assessment & Plan Assessment & Plan (1) Chest pain: Code(s): R07.9 - Chest pain, unspecified Qualifiers: Chest pain type: unspecified Qualified Code(s): R07.9 - Chest pain, unspecified Plan: The patient will be referred to the emergency department for a thorough assessment due to persistent migraines, chest pain, and a recent episode of blurred vision. The emergency department will perform a detailed evaluation to rule out additional triggers for her symptoms. Her history of epileptic seizure will be considered during this evaluation. The patient is not currently on anti-seizure medication. Called expect to ED, spoke with Briana 11:42AM. Patient was informed and verbally consented to the use of an ambient scribe for clinic note documentation during this visit. (2) Migraine headache: Code(s): G43.909 - Migraine, unspecified, not intractable, without status migrainosus Qualifiers: Migraine type: unspecified Status migrainosus presence: with status migrainosus Intractability: not intractable Qualified Code(s): G43.901 - Migraine, unspecified, not intractable, with status migrainosus Plan: as above Coding Level of Care Code Est Pt Level 5 (05660) Diagnoses Chest pain, unspecified type R07.9 Chest pain type: unspecified Migraine with status migrainosus, not intractable, unspecified migraine type G43.901 Migraine type: unspecified Status migrainosus presence: with status migrainosus Intractability: not intractable
[2024-12-09 11:14] VITALS: BP 122/88; PULSE 73; RESP 16; TEMP 36.5; O2SAT 98; BMI 30.9
--- OUTSIDE RECORDS SUMMARY | 2024-12-09 11:30 | XMS_ITS | Data Portability ---
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 Imaging None recorded. Medication Orders EpiPen 2-Angel 0.3 mg/0.3 mL injection, auto-injec tor [address] [facility] #[id number], [address] [place], [address], 09:40:01 Patient TargetsNo targets recorded. Patient Instructions Encounter Date Encounter Id Patient Instructions Last Modified By Organization Details Last Modified Time 01/27/2024 0922 Nursing Documentation for Allergy Testing: Ordering Provider Dr. Gannon Weight:lbs: kg: PFT Yes With Bronchodilator Yes approval needed to proceed with allergy testing? No ok'd testing NoHistory of Asthma:No Asthma Meds: Last used: Asthma exacerbated by: Chance that : No Fear of needles: No Regular medications reviewed in Computer: Yes Medication allergies: Reviewed Antihistamine use: No Medications used: Food Allergies: none Any foods make your mouth feeling itchy: No If yes: History of severe reaction where had to go to ER? Yes If yes details: PT don't recall what caused it Type of heat in home: Radiator Pets: Yes If yes: DOG Smoker: Never If former smoker-how much / day for how long When quit years ago Smoking now-how much /day for how long Occupation/Social History: Laid off Symptoms having: Post Nasal Drip If other: congestion, sneezing, itchy eyes Frequency Year Round Spirometry Contraindications: Heart attack in the last 3 months: No Major surgery in last 3 months: No Detached retina(serious eye issues) in last 2 months: No Hospitilization in last month: No Proceed with PFT Yes approval needed: No Nursing Notes: Pt tolerated test well Yes Benadryl cream to test sites Yes Patient became syncopal-placed in supine position No Large reactions to MQT, reschedule IDT for a different date Yes Other: Written by: Anne Gustafson [email or web address] Not available 01/27/2024 11:04:06 Reason for Referral None Reported. Problems Name Problem SNOMED Code Status Onset Date Resolution Date Notes Provider Name and Address Organization Details Recorded Time Hypertrop hy of nasal turbinate s 14189032 Active 2019 Hypertroph y of nasal turbinates ; Note: Date Diagnosed: 09/03/2019 10:55 AM (J34.3) Not Available Formerly [facility] 4 02:44:49 Allergic rhinitis 45037344 Active 2019 Perennial allergic rhinitis; Note: Date Diagnosed: 09/03/2019 10:55 AM (J30.89) Note: Date Diagnosed: 09/03/2019 10:55 AM (J30.89) Not Available Former[facility] 4 01:07:35 Nasal congestio n 18429628 Active 2019 Nasal congestion ; Note: Date Diagnosed: 09/03/2019 10:55 AM (R09.81) Not Available [facility] 4 02:44:51 Perennial allergic rhinitis 964027298 Active 2023 JENAE GANNON MD [address] [address], [place], [address] , [facility] 4 11:53:28 Problem Notes None recorded. Procedures Surgical History Date Name Laterality Status Provider Name and Address Organization Details Recorded Time 01/28/20 24 Allergy Testing-Full completed CUBA HUANG 100 [facility],[address] [address], [place], [address], [facility] 01/28/2024 13:45:31 01/27/20 24 Allergy Testing Modified- Quantitative Testing (MQT) Only completed CUBA HUANG [address], [address], [facility] 01/27/2024 11:17:39 12/19/19 24 NasalEndoscopy_D P completed JENAE GANNON MD [address], [address], [facility] 12/19/2023 11:53:03 10/23/19 21 ligation of fallopian tube completed Ivette Burch [facility] 12/19/2023 11:27:08 Imaging Results None recorded. Procedure [...] Updated DateTime 12/19/2023 160.02 cm 26.6 kg/m2 60018.86 g Ivette Burch [facility] 12/19/2023 11:40:01 Date Recorded Body height Body mass index (BMI) Body weight Heart rate Oxygen saturation Oxygen saturation in Arterial blood by Pulse oximetry Systolic blood pressure Diastolic blood pressure Provider Name and Address Organization Details Last Updated DateTime 160.02 cm 26.6 kg/m2 31851.8 6 g 76 /min 97 % 97 % 105 mm[Hg] 74 mm[Hg] DIXON HUANG[address], [address], [facility] 10:45:11 Date Recorded Oxygen saturation Oxygen saturation in Arterial blood by Pulse oximetry Heart rate Systolic blood pressure Diastolic blood pressure Provider Name and Address Organization Details Last Updated DateTime 98 % 98 % 80 /min 110 mm[Hg] 78 mm[Hg] CUBA HUANG [address] [place] [address], [phone], [facility] 13:25:40 Social History None recorded. Functional Status None [...] Note 3029 JENAE GANNON MD [facility] [address] [place] [address] 12/19/2023 11:13:07 12/19/2023 12:13:40 Allergic rhinitis 35819157 J30.9 Perennial allergic rhinitis 209049731 J30.89 7881 CUBA HUANG [facility] 100 [facility] [address] [address] 01/27/2024 10:35:03 01/29/2024 13:23:45 Allergic rhinitis 98324899 J30.9 8069 ANNE GUSTAFSON RMA Allergy 100 [facility], ite 100 [place] [address] 01/28/2024 13:01:52 01/29/2024 13:18:30 Allergic rhinitis 83337894 J30.9 [id number] JENAE GANNON MD [facility] [address] [place] [address] 02/14/2024 09:14:57 02/14/2024 09:42:10 Allergic rhinitis 41424788 J30.9 Health Concerns Section Related Observation LastModified by Organization Detai ls LastModified Time None Recorded Concern Status LastModified by Organization Details LastModified Time None Recorded Advance Directives Directive None Recorded Payers Insurance Date Sequence Insurance Name Policy Number Policy Corbin Covered Member ID Corbin Member ID Guarantor Name 02/13/2024 1 [place] [facility] M Milagros [id number] Charmaine Milagros 01/27/[address] [facility] PLAN (MEDICAID HMO) Charmaine Milagros [id number] Charmaine Milagros 01/22/[address] [facility] [id number] Charmaine M Arden [id number] Charmaine Arden 01/23/2024 2 [facility] TYPE [facility] (HMO) [id number] Charmaine M Arden [id number] Charmaine Arden 02/13/[address] 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 MD 100 [facility],[address] [address], [place], [address], [place] [facility] [place] 12/19/2023 11:55:08 02/14/2024 text/html Allergic rhinitis01/28/24 Allergy skin testing - [employer], cockroach, dust, Melissa, mold, cat, dog nasal congestionpoor sense of smell but occasional OK on right sideonset years agodoes not recall nasal traumano imaging of sinusno epistaxistobacco - deniestried nasal spray flonase - no reliefzyrtec also not 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 [place] 02/14/2024 09:45:16 OBGyn Episode No OBEpisode recorded.
== END 2024-12-09 11:53 | disposition home or self-care (01) ==
PROVIDERS: PCP Internal Medicine; Visit Provider Physician Assistant
DX: R07.9 Chest pain, unspecified (principal); G43.901 Migraine, unspecified, not intractable, with status migrainosus

== ENCOUNTER → 2024-12-09 10:30 | Outpatient (BNVA) | payer OTHER, SELFPAY | PROVIDERS: PCP Internal Medicine; Visit Provider Physician Assistant | DX: R07.9 Chest pain, unspecified (principal); G43.901 Migraine, unspecified, not intractable, with status migrainosus | CPT/HCPCS: 99212 ==

== ENCOUNTER 2024-12-09 11:58 | Emergency (ER) | payer OTHER, SELFPAY ==
--- NOTE | ~2024-12-09 | CT_ITS ---
EXAMINATION: CT HEAD WITHOUT IV CONTRAST HISTORY: headache worsening. TECHNIQUE: Unenhanced helical CT of the head was performed per standard departmental protocol. Coronal and sagittal reformats of the head were also evaluated. One or more of the following techniques was used for dose reduction: Automated exposure control, adjustment of the mA and/or kV according to patient size, use of iterative reconstruction technique. DLP: 593 mGy-cm COMPARISON: There are no prior studies for comparison. FINDINGS: BRAIN: The brain parenchyma is unremarkable. There is normal henriquez/white differentiation. The ventricular system is normal in size and configuration. There is no mass effect or midline shift. No intra- or extra-axial fluid collections are identified. SINUSES: The visualized paranasal sinuses are clear. The mastoid air cells and middle ear cavities are well pneumatized. ORBITS: The visualized orbits are unremarkable. BONES/SOFT TISSUES: The extracranial soft tissues are unremarkable. The calvarium is intact. No suspicious lytic or sclerotic lesions. CT/CT head/brain wo IV con IMPRESSION: Unremarkable unenhanced head CT. Electronically signed by: Mohinder Samaniego MD 12/09/2024 01:38 PM EDT
--- NOTE | 2024-12-09 12:01 | ECG_ITS ---
Test Reason : cp Blood Pressure : */* mmHG Vent. Rate : 74 BPM Atrial Rate : 74 BPM P-R Int : 158 ms QRS Dur : 88 ms QT Int : 358 ms P-R-T Axes : 34 9 -21 degrees QTcB Int : 397 ms Normal sinus rhythm Nonspecific T wave abnormality Abnormal ECG When compared with ECG of 23-Feb-2017 18:26, Questionable change in QRS axis Nonspecific T wave abnormality now evident in Lateral leads Referred By: Briana Garcia Electronically Signed By: JEREMY THOMAS MD
[2024-12-09 12:02] VITALS: BP 131/92; PULSE 75; RESP 16; TEMP 36.3; O2SAT 99; BMI 30.6
--- NOTE | 2024-12-09 12:06 | ED_ITS ---
HPI - Chest Pain General Chief Complaint: Headache Stated Complaint: Chest Pain, Blurry Vison Time Seen by Provider: 12/09/24 14:19 Source: patient, RN notes reviewed and old records reviewed Mode of arrival: ambulatory Limitations: no limitations History of Present Illness ED Provider: KAYA FELDER PA-C HPI narrative: 29-year-old female with history of migraines presents to the ED today for evaluation of headache x1 week. Reports history of migraines, she is not on any medication for this. Does not follow up with Neurology. Reports diffuse headache, more prominent on right side. Denies recent injury, trauma or falls. Reports associated sensitivity to light and sound. Reports blurred vision when headache initially began and resolved after a few minutes. No other vision changes. She has trialed Tylenol and Excedrin with minimal relief. Additionally reports chest pain that began 4 days ago. Pain is worse with movement and palpation of the chest. Pain is localized to central chest, no radiation. No pain with inspiration. Denies associated shortness of breath or palpitations. Denies OCP use. Denies recent travel or long car rides. No calf tenderness or swelling. Related Data Previous Rx's ?Medication ?Instructions ?Recorded escitalopram oxalate 10 mg tablet 10 mg PO DAILY Anxiety 90 days #90 07/23/24 (Lexapro) tabs fluticasone propionate 50 1 spray intranasal BID #48 grams 07/24/24 mcg/actuation nasal spray,suspension (Allergy Relief (fluticasone)) cetirizine 10 mg tablet (Zyrtec) 10 mg PO Q12H Nasal congestion 90 08/13/24 days #180 tabs montelukast 10 mg tablet 10 mg PO .q am 90 days #90 tabs 08/13/24 bphcnhh-qxcsloeudvudy-jqovvjyb 250 1 tab PO Q6H PRN headache #7 tabs 12/09/24 mg-250 mg-65 mg tablet (Excedrin Migraine) diphenhydramine HCl 25 mg tablet 25 mg PO Q8H PRN nausea and 12/09/24 (Benadryl Allergy) vomiting #20 tabs metoclopramide HCl 10 mg tablet 10 mg PO Q6H PRN nausea and 12/09/24 (Reglan) vomiting #7 tabs Allergies Allergy/AdvReac Type Severity Reaction Status Date / Time No Known Allergies Allergy Verified 12/09/24 12:04 [No Known Allergies*] Review of Systems 2 Review of Systems: Constitutional: No fever, chills, fatigue, night sweats, weight changes ENT/Mouth: No ear pain, hearing loss, nasal congestion, sinus pain, rhinorrhea, sore throat Eyes: No eye pain, swelling, redness, vision changes, discharge, photophobia Cardio: No palpitations, LI, orthopnea, peripheral edema, +chest pain Pulm: No SOB, cough, sputum, wheezing, dyspnea, hemoptysis GI: No nausea, vomiting, hematemesis, abdominal pain, diarrhea, constipation, hematochezia, melena : No irregular bleeding, dysuria, frequency, urgency, hesitancy, hematuria, flank pain, urinary flow changes, urinary incontinence or retention MSK: No back pain, neck pain, joint pain, myalgias Skin: No lesions, rashes Neuro: No weakness, numbness, paresthesias, LOC, dizziness, +headache Psych: No anxiety/panic, depression, SI/HI, AH/VH All other systems reviewed and are negative. [facility] Past Medical History Attestation statement: The following information was validated with the patient. Source: old records reviewed and nursing notes reviewed Medical History Migraine headache Scoliosis Surgical History Hx of tubal ligation Family History Family History Maternal Grandmother Diabetes mellitus CVD (cardiovascular disease) Social History Social History Household Members: Spouse and Children Housing: House Unable to assess alcohol history related to: Unknown Alcohol intake: current Alcohol intake frequency: holidays/special occasions only Patient Tobacco Use Status: Never used Tobacco Smoked in Last 30 Days: No e-Cigarette/Vaping Use: Never Used Second Hand Smoke Exposure: No Use of substances other than those prescribed or required for medical reasons: Unknown Advance Directives: No Advance Directives Information Provided: Yes Do you have a plan to hurt others: No Plan service: No Current occupational status: employed 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 Skin: Warm, dry, intact. No rashes or lesions. Head: Normocephalic, atraumatic. No scalp tenderness, no palpable temporal artery. EENT: Hearing is intact b/l. Conjunctiva clear. Sclera is anicteric. PERRLA. EOM intact. Moist mucous membranes.? Cardiac: Chest wall symmetric. RRR. Reproducible tenderness to palpation along sternum. No palpable crepitus or deformity. Lungs: Normal respiratory effort without accessory muscle use. CTA bilaterally Back: No midline spinous or paraspinal tenderness. No step off deformity. Ext: No peripheral edema. No calf tenderness. Neuro: AOx3. Normal speech. NIH 0. Strength 5/5 intact throughout. Sensation intact to light touch. NV intact distally. Ambulating with steady gait. Course Course Course Narrative: 29 yo female with PMH of migraines but not on daily medications she comes in with R saided throbbing headache starting Saturday when her kids were screaming. She also has central chest pain worse with moving not on OCPs. She had no preceding URI syndrome. She was referred by due to chest pain as well as blurred out vision when headache started. She denies trauma and has not been on blood thinners. EKG, labs, troponin, CT head for mass has never had imaging before this is a RAPID medical screening exam the rest of the history and physical exam is to be done by the main provider. DORCAS 12/09/24 1209pm Reevaluation(s) Reevaluation #1: 5560 -- CBC without leukocytosis or left shift. No anemia. H&H stable. Chemistry without acute electrolyte abnormality requiring intervention. No SWAPNIL. Troponin undetectable. Liver function WNL. Beta quant undetectable, not . ct head/brain unremarkable. ekg showing NSR, no acute ischemic changes or ST elevations. PERC 0 - no dimer/ imaging warranted, PE unlikely. > treated w/ toradol reglan and benadryl. reports improvemet in [place], now 08/24. resolution of CP. requesting discharge home. i feel this is reasonable. > Patient has remained stable throughout ED visit today. Discussed worrisome signs and symptoms and when to return to the ED. All questions answered at this time. Patient is agreeable with disposition and stable for discharge. Medications Administered Discontinued Medications Generic Name Dose Route Start Last Admin Trade Name Freq PRN Reason Stop Dose Admin Diphenhydramine HCl 25 mg 12/09/24 14:34 12/09/24 15:11 Diphenhydramine Hcl 50 Mg/Ml Vial IVPUSH 12/09/24 14:35 Not Given ONCE ONE Sodium Chloride 1,000 mls @ 999 mls/hr 12/09/24 14:45 12/09/24 16:08 Ns IV 12/09/24 15:45 Infused .Q1H1M LUCAS Infusion Ketorolac Tromethamine 30 mg 12/09/24 14:34 12/09/24 14:46 Ketorolac Tromethamine 30 Mg/Ml Vial IVPUSH 12/09/24 14:35 30 mg ONCE ONE Administration Metoclopramide HCl 10 mg 12/09/24 14:34 12/09/24 14:47 Metoclopramide Hcl 10 Mg/2 Ml Vial IVPUSH 12/09/24 14:35 10 mg ONCE ONE Administration Medical Decision Making Medical Decision Making MDM Narrative: 29-year-old female with history of migraines presents to the ED today for evaluation of headache x1 week and chest pain x4 days. Vital signs stable, not hypoxic or tachycardic Differential diagnosis includes headache, migraine, tension headache, anemia, electrolyte disturbance, ACS, arrhythmia, pleurisy, MSK sprain/strain, costochondritis Unlikely ICH, CVA/TIA/dissection, giant cell arteritis, trigeminal neuralgia, meningitis, encephalitis, TBI. History without high risk features (no exertional component, not relieved with rest).? Minimal CAD risk factors (including age). Exam without evidence of volume overload. EKG without signs of active ischemia. HEART score: 0. Given the timing of pain to ED presentation, plan to send single troponin to evaluate for NSTEMI. Presentation not consistent with acute PE (PERC negative), pneumothorax, thoracic aortic dissection, cardiac effusion or tamponade, myocarditis, pericarditis. Plan for labs, ekg ct head, pain meds, re-eval. Differential Diagnosis Differential Diagnoses: The differential diagnosis associated with the presentation includes As above Admission/Observation Not indicated Lab Data MDM Lab Attestation statement: I reviewed the patient's lab results. As above 12/09/24 12:16 12/09/24 12:16 Labs: Lab Results 12/09/24 Range/Units 12:16 WBC 6.1 (4.8-10.8) X10*3/uL RBC 4.69 (4.20-5.50) X10*6/uL Hgb 13.9 (12.0-16.0) g/dl Hct 40.8 (37.0-47.0) % MCV 87.0 (80.0-98.0) fL MCH 29.6 (27.0-33.0) pg MCHC 34.1 (31.0-35.0) g/dl RDW 12.1 (11.0-16.0) % Plt Count 256 (160-400) X10*3/uL MPV 10.6 (9.4-12.3) fL Immature Gran % (Auto) 0.2 (0.0-0.4) % Neut % (Auto) 54.5 (45-73) % Lymph % (Auto) 29.4 (20-40) % Morton % (Auto) 8.4 (2-11) % Eos % (Auto) 6.7 H (0-4) % Baso % (Auto) 0.8 (0-2) % Lymph # (Auto) 1.8 (1.2-4.9) X10*3/uL Morton # (Auto) 0.5 (0.1-1.2) X10*3/uL Eos # (Auto) 0.4 (0.0-0.4) X10*3/uL Baso # (Auto) 0.1 (0.0-0.2) X10*3/uL Abs Immat Gran (auto) 0.01 (0.00-0.03) X10*3/uL Absolute Neuts (auto) 3.3 (2.0-8.3) x10*3/uL Absolute Nucleated RBC 0.000 (0.0-0.012) X10*3/uL Nucleated RBC % (auto) 0.0 (0.0-0.2) /100WBC ESR 2 (0-20) MM/HR Sodium 139 (135-145) mmol/L Potassium 4.1 (3.3-5.1) mmol/L Chloride 105 (96-108) mmol/L Carbon Dioxide 29 (22-29) mmol/L Anion Gap 9 L (12-20) BUN 10 (9-16) mg/dL Creatinine 0.68 (0.5-1.4) mg/dL Estim Creat Clear Calc 118.8 Estimated GFR > 60 Random Glucose 98 (60-115) mg/dL Calcium 9.5 D (8.4-10.2) mg/dL Magnesium 1.9 (1.6-2.6) mg/dL Total Bilirubin 0.4 (0.0-1.0) mg/dL Direct Bilirubin 0.1 (0.0-0.5) mg/dL AST 24 (5-31) U/L ALT 31 (0-31) U/L Alkaline Phosphatase 80 (39-117) U/L Troponin I High Sens < 2.7 (<3.5-17.0) ng/L C-Reactive Protein 0.11 (< or = 0.50) mg/dL Total Protein 7.2 (6.5-8.0) g/dL Albumin 4.7 (3.5-5.0) g/dL Beta HCG, Quant < 2 mIU/mL Independent Interpretation I performed an independent interpretation of an: EKG and CT Scan Interpretation: ct head/brain without mass or bleed ekg showing NSR, no acute ischemic changes or ST elevations Radiology Impression Discussion of test interpretation with radiology: I have reviewed the radiologist's reading. Radiologist Impression: Date of Service: 12/09/24 Procedure(s): CT head/brain wo IV con Accession Number(s): [id number] cc: Briana Garcia DO; Tarun Harmon MD~ Report Number: [id number]: Total DLP = 593.00 mGy-cm EXAMINATION: CT HEAD WITHOUT IV CONTRAST HISTORY: headache worsening. TECHNIQUE: Unenhanced helical CT of the head was performed per standard departmental protocol. Coronal and sagittal reformats of the head were also evaluated. One or more of the following techniques was used for dose reduction: Automated exposure control, adjustment of the mA and/or kV according to patient size, use of iterative reconstruction technique. DLP: 593 mGy-cm COMPARISON: There are no prior studies for comparison. FINDINGS: BRAIN: The brain parenchyma is unremarkable. There is normal henriquez/white differentiation. The ventricular system is normal in size and configuration. There is no mass effect or midline shift. No intra- or extra-axial fluid collections are identified. SINUSES: The visualized paranasal sinuses are clear. The mastoid air cells and middle ear cavities are well pneumatized. ORBITS: The visualized orbits are unremarkable. BONES/SOFT TISSUES: The extracranial soft tissues are unremarkable. The calvarium is intact. No suspicious lytic or sclerotic lesions. CT/CT head/brain wo IV con IMPRESSION: Unremarkable unenhanced head CT. Electronically signed by: Mohinder Samaniego MD 12/09/2024 01:38 PM EDT RP Prescription Management I considered prescription management with: Pain Medication Social Determinants Patient?s care significantly limited by Social Determinants of Health including: Other Social Determinant of Health Critical Care Time Critical Care Time Critical Care Time: No Discharge Plan Discharge Clinical Impression: Headache Patient Disposition: Home, Self-Care Instructions: Acute Headache (ED) Additional Instructions: You have been evaluated in the Emergency Department today for headache. Your evaluation did not show evidence of medical conditions requiring emergent intervention at this time, and your pain improved with medication in the ED. Sometimes it is difficult to explain the cause of headache but the negative workup today is reassuring. I want you to take the following 3 medications together every 6 hours as needed for headache, nausea or vomiting. ? - Reglan 10 mg - Benadryl 50 mg - Excedrin migraine After you take these medications, lie down in a dark quiet room and try to fall asleep. ?These medications will make you sleepy, do not drive or work after taking these medications. Please follow up with your primary care physician within two days. Return to the Emergency Department if you experience worsening or uncontrolled pain, vision changes, recurrent vomiting, difficulty with normal activities, abnormal behavior, difficulty walking, numbness, weakness, or any other concerning symptoms. Prescriptions: New metoclopramide HCl [Reglan] 10 mg tablet 10 mg PO Q6H PRN (Reason: nausea and vomiting) Qty: 7 0RF diphenhydramine HCl [Benadryl Allergy] 25 mg tablet 25 mg PO Q8H PRN (Reason: nausea and vomiting) Qty: 20 0RF Excedrin Migraine 250-250-65 mg tablet 1 tab PO Q6H PRN (Reason: headache) Qty: 7 0RF No Action fluticasone propionate [Allergy Relief (fluticasone)] 50 mcg/actuation spray,suspension 1 spray intranasal BID Qty: 48 0RF Rx Instructions: administer into each nostril montelukast 10 mg tablet 10 mg PO .q am 90 Days Qty: 90 3RF cetirizine [Zyrtec] 10 mg tablet 10 mg PO Q12H 90 Days Qty: 180 1RF escitalopram oxalate [Lexapro] 10 mg tablet 10 mg PO DAILY 90 Days Qty: 90 0RF Referrals: Tarun Harmon MD [Primary Care Provider] - Interventions: ED Discharge Assessment Last Done: 12/09/24 16:06 Discharge Date/Time: 12/09/24 16:08 Print Language: Tamazight
[2024-12-09 12:21] LABS: MANUAL DIFF FLAG NO
[2024-12-09 12:23] LABS: Basophils Absolute Auto 0.1 X10*3/uL (0.0-0.2); Basophils Percent Auto 0.8 % (0-2); Eosinophils Absolute Auto 0.4 X10*3/uL (0.0-0.4); Eosinophils Percent Auto 6.7 % (0-4); Hematocrit 40.8 % (37.0-47.0); Hemoglobin 13.9 g/dl (12.0-16.0); Imm Gran Abs Auto 0.01 X10*3/uL (0.00-0.03); Imm Gran Pct Auto 0.2 % (0.0-0.4); Lymphocytes Absolute Auto 1.8 X10*3/uL (1.2-4.9); Lymphocytes Percent Auto 29.4 % (20-40); Mean Corpuscular HGB Conc 34.1 g/dl (31.0-35.0); Mean Corpuscular Hemoglobin 29.6 pg (27.0-33.0); Mean Platelet Volume 10.6 fL (9.4-12.3); Monocytes Absolute Auto 0.5 X10*3/uL (0.1-1.2); Monocytes Percent Auto 8.4 % (2-11); Neutrophils Absolute Auto 3.3 x10*3/uL (2.0-8.3); Neutrophils Percent Auto 54.5 % (45-73); Platelet Count 256 X10*3/uL (160-400); Red Blood Count 4.69 X10*6/uL (4.20-5.50); Red Cell Distribution Width 12.1 % (11.0-16.0); White Blood Count 6.1 X10*3/uL (4.8-10.8)
[2024-12-09 12:45] LABS: Alanine Aminotransferase 31 U/L (0-31); Albumin Level 4.7 g/dL (3.5-5.0); Alkaline Phosphatase 80 U/L (39-117); Anion Gap 9 (12-20); Aspartate Amino Transferase 24 U/L (5-31); Bilirubin Direct 0.1 mg/dL (0.0-0.5); Bilirubin Total 0.4 mg/dL (0.0-1.0); Blood Urea Nitrogen 10 mg/dL (9-16); Calcium 9.5 mg/dL (8.4-10.2); Carbon Dioxide 29 mmol/L (22-29); Chloride 105 mmol/L (96-108); Creatinine Clr Calc Pharmacy 118.8; Estimated Glomerular Filt Rate > 60; Glucose Random 98 mg/dL (60-115); Magnesium 1.9 mg/dL (1.6-2.6); Potassium 4.1 mmol/L (3.3-5.1); Sodium 139 mmol/L (135-145); Total Protein 7.2 g/dL (6.5-8.0)
[2024-12-09 12:47] LABS: HCG Quantitative < 2 mIU/mL; Troponin-I High Sensitivity < 2.7 ng/L (<3.5-17.0)
[2024-12-09] MEDS: 0.9 % Sodium Chloride 1,000 ML 999 ML IV (14:45)
[2024-12-09 14:46] VITALS: BP 124/85; PULSE 78; RESP 16; TEMP 36.6; O2SAT 98
[2024-12-09] MEDS: Ketorolac Tromethamine 30 MG/ML VIAL IVPUSH (14:46)
[2024-12-09] MEDS: Metoclopramide HCl 10 MG/2 ML VIAL IVPUSH (14:47)
[2024-12-09 14:50] LABS: C Reactive Protein 0.11 mg/dL (< or = 0.50)
--- NOTE | 2024-12-09 14:54 | PC.NURSE ---
Pt medicated per order. declined benadryl at this time as she does not want to be drowsy.
[2024-12-09 15:31] LABS: Erythrocyte Sedimentation Rate 2 MM/HR (0-20)
[2024-12-09 16:06] VITALS: BP 125/75; PULSE 74; RESP 16; TEMP -17.7; TEMP 0; O2SAT 98
== END 2024-12-09 16:08 | disposition home or self-care (01) ==
PROVIDERS: Emergency Medicine; Physician Assistant Medical; Emergency Provider Emergency Medicine; PCP Internal Medicine
DX: R51.9 Headache, unspecified (principal); R07.9 Chest pain, unspecified
CPT/HCPCS: 36415; 70450; 80048; 80076; 83735; 84484; 84702; 85025; 85652; 86140; 93005; 96361; 96374; 96375; 99284; 99285; J1885; J2765

== ENCOUNTER → 2024-12-09 12:01 | Outpatient (BNV) | payer OTHER, SELFPAY | PROVIDERS: Emergency Provider Emergency Medicine; PCP Internal Medicine; Visit Provider Internal Medicine Cardiovascular Disease | DX: R94.31 Abnormal electrocardiogram [ECG] [EKG] (principal); R07.9 Chest pain, unspecified | CPT/HCPCS: 93010 ==

== ENCOUNTER → 2024-12-09 12:09 | Outpatient (BNV) | payer OTHER, SELFPAY | PROVIDERS: PCP Internal Medicine; Visit Provider Radiology Diagnostic Radiology | DX: R51.9 Headache, unspecified (principal) | CPT/HCPCS: 70450 ==

== ENCOUNTER 2024-12-23 14:38 | Outpatient (REF) | payer OTHER, SELFPAY ==
--- NOTE | ~2024-12-23 | US_ITS ---
CLINICAL HISTORY: Z01.419 - Encounter for gynecological examination (general) (routine) wi... --- Add itional Notes or Special Instructions: Last episode 2 weeks ago LMP 10 23 2024. US female pelvis LMP:11/22/24. Technique: Ultrasound examination of the pelvis was performed with transabdominal and transvaginal technique for better visualization of the ovaries. Images include: color Doppler. Comparison: None Findings: Anteverted uterus measuring 8.8 x 4.5 x 6.1 cm without masses. Normal endometrial thickness of 0.9 cm. Trace fluid seen within endometrial canal is favored over a small cyst within the endometrium. The right ovary is normal in size, measuring 3.1 x 2.3 x 2.1 cm, volume of 7.6 mL. There is normal echogenicity and vascularity. Dominant follicle measuring 1.3 x 1.5 x 1.4 cm. The left ovary is normal in size, measuring 3.2 x 1.7 x 2.6 cm, volume of 7.4 mL. There is normal echogenicity and vascularity. No lesions. There is a trace amount of fluid in the cul-de-sac, which is likely physiologic. Impression: Trace fluid within the endometrial canal is favored over a small cyst within the endometrium without endometrial thickening. Adenomyosis could be considered, however there are no other signs of adenomyosis. This document has been electronically signed by: Amarilis Fink MD on 12/23/2024 21:23:27
--- OUTSIDE RECORDS SUMMARY | 2024-12-23 16:49 | XMS_ITS | Data Portability ---
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 Imaging None recorded. Medication Orders EpiPen 2-Angel 0.3 mg/0.3 mL injection, auto-injec tor 2023 024 [facility] #[id number], [address] [place], [address], 09:40:01 Patient TargetsNo targets recorded. Patient Instructions Encounter Date Encounter Id Patient Instructions Last Modified By Organization Details Last Modified Time 01/27/2024 [id number] Nursing Documentation for Allergy Testing: Ordering Provider [...] date Yes Other: Written by: Anne Gustafson [email or web address] Not available 01/27/2024 11:04:06 Reason for Referral None Reported. Problems Name Problem SNOMED Code Status Onset Date Resolution Date Notes Provider Name and Address Organization Details Recorded Time Hypertrop hy of nasal turbinate s 94401424 Active 2019 Hypertroph y of nasal turbinates ; Note: Date Diagnosed: 09/03/2019 10:55 AM (J34.3) Not Available [facility] 4 02:44:49 Allergic rhinitis 11771818 Active 2019 Perennial allergic rhinitis; Note: Date Diagnosed: 09/03/2019 10:55 AM (J30.89) Note: Date Diagnosed: 09/03/2019 10:55 AM (J30.89) Not Available [facility] 4 01:07:35 Nasal congestio n 79679976 Active 2019 Nasal congestion ; Note: Date Diagnosed: 09/03/2019 10:55 AM (R09.81) Not Available [facility] 4 02:44:51 Perennial allergic rhinitis 352932860 Active 2023 JENAE GANNON MD [address] [address], [place], [address] , [facility] 4 11:53:28 Problem Notes None recorded. Procedures Surgical History Date Name Laterality Status Provider Name and Address Organization Details Recorded Time 01/28/20 24 Allergy Testing-Full completed CUBA HUANG 100 [facility],[address] [address], [place], [address], [facility] 01/28/2024 13:45:31 01/27/20 24 Allergy Testing Modified- Quantitative Testing (MQT) Only completed CUBA HUANG [address], [address], [facility] 01/27/2024 11:17:39 12/19/19 24 NasalEndoscopy_D P completed JENAE GANNON MD [address], [address], [facility] 12/19/2023 11:53:03 10/23/19 21 ligation of fallopian tube completed Ivette Burch [facility] 12/19/2023 11:27:08 Imaging Results None recorded. Procedure [...] Updated DateTime 12/19/2023 160.02 cm 26.6 kg/m2 38466.86 g Ivette Burch [facility] 12/19/2023 11:40:01 Date Recorded Body height Body mass index (BMI) Body weight Heart rate Oxygen saturation Oxygen saturation in Arterial blood by Pulse oximetry Systolic blood pressure Diastolic blood pressure Provider Name and Address Organization Details Last Updated DateTime 160.02 cm 26.6 kg/m2 23717.8 6 g 76 /min 97 % 97 % 105 mm[Hg] 74 mm[Hg] DIXON HUANG[address], [address], [facility] 10:45:11 Date Recorded Oxygen saturation Oxygen saturation in Arterial blood by Pulse oximetry Heart rate Systolic blood pressure Diastolic blood pressure Provider Name and Address Organization Details Last Updated DateTime 98 % 98 % 80 /min 110 mm[Hg] 78 mm[Hg] CUBA HUANG [address] [place] [address], [phone], [facility] 13:25:40 Social History None recorded. Functional Status [...] Note 3029 JENAE GANNON MD [facility] [address] [place] [address] 12/19/2023 11:13:07 12/19/2023 12:13:40 Allergic rhinitis 67725881 J30.9 Perennial allergic rhinitis 089066441 J30.89 7881 CUBA HUANG [facility] 100 [facility] [address] [address] 01/27/2024 10:35:03 01/29/2024 13:23:45 Allergic rhinitis 58042590 J30.9 8069 ANNE GUSTAFSON RMA All[facility] 100 [facility], ite 100 [place] [address] 01/28/2024 13:01:52 01/29/2024 13:18:30 Allergic rhinitis 93723682 J30.9 41936 JENAE GANNON MD [facility] [address] [place] [address] 02/14/2024 09:14:57 02/14/2024 09:42:10 Allergic rhinitis 17015407 J30.9 Health Concerns Section Related Observation LastModified by Organization Detai ls LastModified Time None Recorded Concern Status LastModified by Organization Details LastModified Time None Recorded Advance Directives Directive None Recorded Payers Insurance Date Sequence Insurance Name Policy Number Policy Corbin Covered Member ID Corbin Member ID Guarantor Name 02/13/2024 1 [place] [facility] M Mcbride [id number] Charmaine Mcbride 01/27/2024 1 [facility] PL[facility] (MEDICAID HMO) Charmaine Mcbride [id number] Charmaine Milagros 01/22/2024 1 [facility] [id number] Charmaine M Milagros [id number] Charmaine Milagros 01/23/2024 2 [facility] [id number] Charmaine M Mcbride [id number] Charmaine Milagros 02/13/2024 1 [facility] PL[facility] (MEDICAID HMO) Charmaine Mcbride [id number] Charmaine Milagros 01/22/2024 1 [place] [facility] Charmaine M Mcbride [id number] Charmaine Milagros Notes Date Note Type Note Provider Name and Address Organization Details Recorded Time 12/19/2023 text/html nasal congestion poor sense of smell but occasional OK on right sideonset years agodoes not recall nasal traumano imaging of sinusno epistaxistobacco - deniestried nasal spray flonase - no reliefzyrtec also not 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, 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 MD 100 [facility],[address] [address], [place], [address], [place] [facility] 12/19/2023 11:55:08 02/14/2024 text/html Allergic rhinitis01/28/24 Allergy skin testing - [place] planting, cockroach, dust, Melissa, mold, cat, dog nasal congestionpoor sense of smell but occasional OK on right sideonset years agodoes not recall nasal traumano imaging of sinusno epistaxistobacco - deniestried nasal spray flonase - no reliefzyrtec also not 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
== END 2024-12-23 14:39 | disposition home or self-care (01) ==
LOC: HO.HMGCX 14:38
PROVIDERS: PCP Internal Medicine; Visit Provider Advanced Practice Midwife
DX: Z01.419 Encounter for gynecological examination (general) (routine) without abnormal findings (principal); R10.2 Pelvic and perineal pain; Z12.4 Encounter for screening for malignant neoplasm of cervix
CPT/HCPCS: 76830; 76856

== ENCOUNTER → 2024-12-23 14:39 | Outpatient (BNV) | payer OTHER, SELFPAY | PROVIDERS: PCP Internal Medicine; Visit Provider Radiology Diagnostic Radiology | DX: R10.2 Pelvic and perineal pain (principal) | CPT/HCPCS: 76830; 76856 ==

== ENCOUNTER 2024-12-28 13:54 | Outpatient (AMB) | payer OTHER, SELFPAY ==
--- NOTE | 2024-12-28 13:56 | A.OFFVIS_ITS ---
Intake Visit Reasons: ultrasound results Tag Writer: Tag Writer Present (Cele) Accompanied by: Self / Same As Patient Allergies No Known Allergies [No Known Allergies*] Allergy (Verified 12/28/24 13:57) Is last menstrual period known: Yes Last menstrual period: 05/12/20 Post menopausal: No Patient : No Do you need a note to return to daycare/school/sports/work: Yes (for surgery on saturday) HPI Comments Details: Anteverted uterus measuring 8.8 x 4.5 x 6.1 cm without masses. Normal endometrial thickness of 0.9 cm. Trace fluid seen within endometrial canal is favored over a small cyst within the endometrium. The right ovary is normal in size, measuring 3.1 x 2.3 x 2.1 cm, volume of 7.6 mL. There is normal echogenicity and vascularity. Dominant follicle measuring 1.3 x 1.5 x 1.4 cm. The left ovary is normal in size, measuring 3.2 x 1.7 x 2.6 cm, volume of 7.4 mL. There is normal echogenicity and vascularity. No lesions. There is a trace amount of fluid in the cul-de-sac, which is likely physiologic. 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) Sexual orientation: Straight/Heterosexual Gender identity: Female Cognitive needs: No Hearing needs: No Vision needs: No Female Reproductive History Menstrual Age of Menarche: 13 Date of last menstrual period: 05/12/20 Total pregnancies: 2 Full term: 2 Review of Systems Const All systems reviewed & are unremarkable except as noted in HPI and below Card Reports as per HPI and Reports no additional complaints Resp Reports as per HPI and Reports no additional complaints GI Reports as per HPI and Reports no additional complaints Reports as per HPI Physical Exam Const General: cooperative, healthy appearing and comfortable Resp Effort & Inspection: normal respiratory effort Auscultation: clear to auscultation bilaterally Percussion: percussion normal Cardio Palpation: normal PMI Rate: regular rate Rhythm: regular rhythm Heart sounds: no murmurs and no rubs Peripheral pulses: Peripheral pulses 2+ throughout GI Inspection: Yes normal to inspection Palpation (GI): Soft to palpation, nontender, no guarding, not rigid and No hepatosplenomegaly present Percussion: Yes normal to percussion Auscultation: normal bowel sounds Rectal Exam - Female: deferred General: Yes no CVA tenderness External Female Exam: normal external appearance and normal appearance of the urethra Speculum Exam - Vagina: normal appearance of the vagina, normal palpation, no lesions and no masses Speculum Exam - Cervix: normal appearance of the cervix, normal palpation, no lesions, no masses and nontender Bimanual exam- vagina & uterus: normal bimanual exam, normal palpation, uterine size normal, normal palpation, uterine shape normal, No Cervical tenderness present and non-tender Bimanual Exam- Adnexa, other: normal adnexae Back/Spine/Pelvis Back: no CVA tenderness Assessment & Plan Assessment & Plan (1) Abnormal endometrial ultrasound: Code(s): R93.5 - Abnormal findings on diagnostic imaging of other abdominal regions, including retroperitoneum Category: Medical Plan: Discussed with the patient the finding on ultrasound showing endometrial cyst. Recommended to the patient that the next step is an endometrial sampling via hysteroscopy D&C possible polypectomy versus endometrial biopsy to r/o endometrial pathology including hyperplasia or cancer. All the pros and cons risks and benefits of each approach were discussed with the patient, endometrial biopsy being less invasive, office procedure with less sensitivity and inability diagnose a polyp and removal versus hysteroscopy done under anesthesia more invasive more sensitive to endometrial cancer and possibility of diagnosing and endometrial polyp with the possibility of polypectomy. All questions were answered pt verbalized understanding and decided to proceed with hysteroscopy D&C possible polypectomy/myomectomy Discussed with the patient the procedure , all benefits and risks including but not limited to inability to complete the procedure , insufficient endometrial tissue for a complete evaluation of the endometrial cavity , bleeding, infection, possible need for blood transfusion with all its risk ( HIV,syphilis, Hepatitis, anaphylaxis shock, others..), injury to bladder, rectum, possible need for laparoscopy/laparotomy or hysterectomy. The patient verbalized understanding and signed the consent. Instructions given the patient to stay NPO after midnight the day prior to the procedure and to take only the specific medication (s) discussed the morning of the surgical procedure and to schedule a 2 week postoperative appointment (2) Pelvic pain: Code(s): R10.2 - Pelvic and perineal pain Category: Medical Plan: Urine analysis ordered since the patient is on her menstrual cycles and test done in the office was negative. GC and chlamydia taken. Discussed with the patient the differential diagnosis of pelvic pain including but not limited to adnexal, uterine masses, pelvic infections (PID), GI the (Irritable bowel syndrome, diverticulitis, others), musculoskeletal, myofascial pain abdominal wall , adhesions, endometriosis, psychological and others causes. Differential diagnosis of professor of practice causes that have not be ruled out yet include but not limited to endometriosis, pelvic adhesions , or others. Recommended for the patient to see her PCP for further workup for non professor of practice causes; if the all the results are negative and the patient's pelvic pain is persistent, instructions given to patient to call back for further testing. Meanwhile, instructions were given the patient to go to emergency room or call in case of fever above 100.4, heavy vaginal bleeding, persistence or worsening of her pelvic pain. All questions answered, the patient verbalized understanding. (3) Vulvovaginitis: Code(s): N76.0 - Acute vaginitis Category: Medical Plan: GC/CT, Bacterial Vaginosis panel taken, Terazol 0.8% q.h.s. for 3 days was sent to the patient's pharmacy. The patient was instructed to call if symptoms don't improve in 48 hours. Orders: Orders 2 UA CC w/rflx Micro + Cult Today R10.2 - Pelvic and perineal pain Medications: New terconazole 0.8% 1 appful vaginal BEDTIME 3 days 20 grams 0RF Coding Level of Care Code Est Pt Level 3 (91312) Diagnoses Abnormal endometrial ultrasound R93.5 Pelvic pain R10.2 Vulvovaginitis N76.0
--- OUTSIDE RECORDS SUMMARY | 2024-12-28 15:34 | XMS_ITS | Data Portability ---
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 Imaging None recorded. Medication Orders EpiPen 2-Angel 0.3 mg/0.3 mL injection, auto-injec tor 2023 024 [facility] #[id number], [address] [place], [address], 09:40:01 Patient TargetsNo targets recorded. Patient Instructions Encounter Date Encounter Id Patient Instructions Last Modified By Organization Details Last Modified Time 01/27/2024 [id number] Nursing Documentation for Allergy Testing: Ordering Provider [...] date Yes Other: Written by: Anne Gustafson [email or web address] Not available 01/27/2024 11:04:06 Reason for Referral None Reported. Problems Name Problem SNOMED Code Status Onset Date Resolution Date Notes Provider Name and Address Organization Details Recorded Time Hypertrop hy of nasal turbinate s 58813583 Active 2019 Hypertroph y of nasal turbinates ; Note: Date Diagnosed: 09/03/2019 10:55 AM (J34.3) Not Available [facility] 4 02:44:49 Allergic rhinitis 64856752 Active 2019 Perennial allergic rhinitis; Note: Date Diagnosed: 09/03/2019 10:55 AM (J30.89) Note: Date Diagnosed: 09/03/2019 10:55 AM (J30.89) Not Available [facility] 4 01:07:35 Nasal congestio n 12299468 Active 2019 Nasal congestion ; Note: Date Diagnosed: 09/03/2019 10:55 AM (R09.81) Not Available [facility] 4 02:44:51 Perennial allergic rhinitis 758784988 Active 2023 JENAE GANNON MD [address] [address], [place], [address] , [facility] 4 11:53:28 Problem Notes None recorded. Procedures Surgical History Date Name Laterality Status Provider Name and Address Organization Details Recorded Time 01/28/20 24 Allergy Testing-Full completed CUBA HUANG 100 [facility],[address] [address], [place], [address], [facility] 01/28/2024 13:45:31 01/27/20 24 Allergy Testing Modified- Quantitative Testing (MQT) Only completed CUBA HUANG [address], [address], [facility] 01/27/2024 11:17:39 12/19/19 24 NasalEndoscopy_D P completed JENAE GANNON MD [address], [address], [facility] 12/19/2023 11:53:03 10/23/19 21 ligation of fallopian tube completed Ivette Burch [facility] 12/19/2023 11:27:08 Imaging Results None recorded. [...] Updated DateTime 12/19/2023 160.02 cm 26.6 kg/m2 76590.86 g Ivette Burch [facility] 12/19/2023 11:40:01 Date Recorded Body height Body mass index (BMI) Body weight Heart rate Oxygen saturation Oxygen saturation in Arterial blood by Pulse oximetry Systolic blood pressure Diastolic blood pressure Provider Name and Address Organization Details Last Updated DateTime 160.02 cm 26.6 kg/m2 69571.8 6 g 76 /min 97 % 97 % 105 mm[Hg] 74 mm[Hg] DIXON HUANG[address], [address], [facility] 10:45:11 Date Recorded Oxygen saturation Oxygen saturation in Arterial blood by Pulse oximetry Heart rate Systolic blood pressure Diastolic blood pressure Provider Name and Address Organization Details Last Updated DateTime 98 % 98 % 80 /min 110 mm[Hg] 78 mm[Hg] CUBA HUANG [address] [place] [address], [phone], [facility] 13:25:40 Social History None recorded. Functional [...] Note 3029 JENAE GANNON MD [facility] [address] [place] [address] 12/19/2023 11:13:07 12/19/2023 12:13:40 Allergic rhinitis 74170928 J30.9 Perennial allergic rhinitis 797369706 J30.89 7881 CUBA HUANG All[facility] 100 [facility] [address] [address] 01/27/2024 10:35:03 01/29/2024 13:23:45 Allergic rhinitis 25031481 J30.9 8069 ANNE GUSTAFSON RMA Allergy 100 [facility], ite 100 [place] [address] 01/28/2024 13:01:52 01/29/2024 13:18:30 Allergic rhinitis 18287689 J30.9 [id number] JENAE GANNON MD [facility] [address] [place] [address] 02/14/2024 09:14:57 02/14/2024 09:42:10 Allergic rhinitis 85059811 J30.9 Health Concerns Section Related Observation LastModified by Organization Detai ls LastModified Time None Recorded Concern Status LastModified by Organization Details LastModified Time None Recorded Advance Directives Directive None Recorded Payers Insurance Date Sequence Insurance Name Policy Number Policy Corbin Covered Member ID Corbin Member ID Guarantor Name 02/13/2024 1 [place]: [facility] M [place] [id number] Charmaine [place] 01/27/2024 1 [facility] (MEDICAID HMO) Charmaine [place] [id number] Charmaine Milagros 01/22/2024 1 [facility] [id number] Charmaine M Milagros [id number] Charmaine Milagros 01/23/2024 2 [facility] [id number] Charmaine M [place] [id number] Charmaine Milagros 02/13/2024 1 [facility] (MEDICAID HMO) Charmaine [place] [id number] Charmaine Milagros 01/22/2024 1 [place] [facility] Charmaine M [place] [id number] Charmaine Milagros Notes Date Note Type Note Provider Name and Address Organization Details Recorded Time 12/19/2023 text/html nasal congestion poor sense of smell but occasional OK on right sideonset years agodoes not recall nasal traumano imaging of sinusno epistaxistobacco - deniestried nasal spray flonase - no reliefzyrtec also not 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, 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 MD 100 [facility],[address] [address], [place], [address], [place] [facility] [place] 12/19/2023 11:55:08 02/14/2024 text/html Allergic rhinitis01/28/24 Allergy skin testing - [employer] planting, cockroach, dust, Melissa, mold, cat, dog nasal congestionpoor sense of smell but occasional OK on right sideonset years agodoes not recall nasal traumano imaging of sinusno epistaxistobacco - deniestried nasal spray flonase - no reliefzyrtec also not 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
== END 2024-12-28 14:46 | disposition home or self-care (01) ==
LOC: HO.HWS 13:55
PROVIDERS: PCP Internal Medicine; Visit Provider Obstetrics & Gynecology
DX: R93.5 Abnormal findings on diagnostic imaging of other abdominal regions, including retroperitoneum (principal); R10.2 Pelvic and perineal pain; N76.0 Acute vaginitis
CPT/HCPCS: 99213

== ENCOUNTER 2024-12-28 13:54 | Outpatient (REF) | payer OTHER, SELFPAY ==
[2024-12-28 16:02] LABS: Bacterial Vaginosis PCR NEGATIVE (Negative); Candida Group PCR NOT DETECTED (Not Detect); Candida glab krusei PCR NOT DETECTED (Not Detect); Trichomonas vaginalis PCR NOT DETECTED (Not Detect)
[2024-12-28 16:34] LABS: CT PCR NOT DETECTED (Not Detect.); NG PCR NOT DETECTED (Not Detect.)
== END 2024-12-28 13:55 | disposition home or self-care (01) ==
LOC: HO.LNP 13:54
PROVIDERS: PCP Internal Medicine; Visit Provider Obstetrics & Gynecology
DX: R10.2 Pelvic and perineal pain (principal)
CPT/HCPCS: 81515; 87491; 87591; 99212

== ENCOUNTER 2025-01-08 08:02 | Day surgery (SDC) | payer OTHER, SELFPAY ==
[2025-01-06 08:08] VITALS: BMI 30.3
--- NOTE | 2025-01-06 13:09 | HO.ANESPROP2 ---
Documented by User: Alecia Ariza NP 01/06/25 13:09 HPI - Anesthesia Eval Consult details Narrative: 29yo F for D&C Hysteroscopy possible myomectomy / polypectomy PMFSH Active Problems Active Problems: All Active Problems Vulvovaginitis (Acute) Abnormal endometrial ultrasound (Acute) Migraine headache (Acute) Chest pain (Acute) Cervical cancer screening (Acute) Pelvic pain (Acute) Well woman exam with routine gynecological exam (Acute) Environmental allergies (Acute) Pre-diabetes (Acute) Sinus headache (Acute) Acute sinusitis (Acute) Headache syndrome (Acute) Anxiety, generalized (Acute) Stress (Acute) Paresthesias in left hand (Acute) Screen for STD (sexually transmitted disease) (Acute) Well woman exam (Acute) Paresthesia of right leg (Acute) Anosmia (Acute) Chronic nasal congestion (Acute) Deviated nasal septum (Acute) Right lumbar radiculitis (Acute) Scoliosis (Acute) Encounter for routine gynecological examination (Acute) Lateral epicondylitis of both elbows (Acute) Vitamin D deficiency (Acute) Epicondylitis, lateral (tennis elbow) (Acute) Mid back pain on right side (Acute) Tired (Acute) Dizziness (Acute) Encounter for general adult medical examination with abnormal findings (Acute) Supervision of other normal (Acute) Supervision of other normal (Acute) Past Medical History Medical History Migraine headache Scoliosis Family History Family History Maternal Grandmother Diabetes mellitus CVD (cardiovascular disease) Surgical History Surgical History Hx of tubal ligation Social History Social History Household Members: Spouse and Children Housing: House Unable to assess alcohol history related to: Unknown Alcohol intake: current Alcohol intake frequency: holidays/special occasions only Patient Tobacco Use Status: Never used Tobacco e-Cigarette/Vaping Use: Never Used Second Hand Smoke Exposure: No Advance Directives: No Advance Directives Information Provided: Yes service: No Current occupational status: employed 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) Sexual orientation: Straight/Heterosexual Gender identity: Female Cognitive needs: No Hearing needs: No Vision needs: No Meds Allergies Allergy/AdvReac Type Severity Reaction Status Date / Time No Known Allergies (No Known Allergy Verified 12/28/24 13:57 Allergies*) Exam Height,Weight and Vital Signs: Height 5 ft 3 in Weight 77.564 kg Assessment and Plan Assessment Anesthesia Assessment: Chart Reviewed Documented by User: Glendy Belle MD 01/08/25 08:46 PMFSH Past Medical History Medical History Migraine headache Scoliosis Family History Family History Maternal Grandmother Diabetes mellitus CVD (cardiovascular disease) Family history of problems with anesthesia: No Surgical History Surgical History Hx of tubal ligation History of Problems with Anesthesia: No Social History Social History Household Members: Spouse and Children Housing: House Unable to assess alcohol history related to: Unknown Alcohol intake: current Alcohol intake frequency: holidays/special occasions only Patient Tobacco Use Status: Never used Tobacco e-Cigarette/Vaping Use: Never Used Second Hand Smoke Exposure: No Advance Directives: No Advance Directives Information Provided: Yes service: No Current occupational status: employed 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) Sexual orientation: Straight/Heterosexual Gender identity: Female Cognitive needs: No Hearing needs: No Vision needs: No Meds Allergies Allergy/AdvReac Type Severity Reaction Status Date / Time No Known Allergies (No Known Allergy Verified 12/28/24 13:57 Allergies*) Exam Airway Mallampati Class: II TM Dist: >3cm Neck ROM: Full Heart: rrr Lungs: cta Assessment and Plan Assessment Anesthesia Assessment: Anesthesia Plan Discussed Final Anesthetic Review Family History of Problems with Anesthesia: No History of Problems with Anesthesia: No NPO: Yes ASA Class: II Final Preanesthetic Review: No Changes in Pt Med Stat, Meds/Allgs Chart Reviewed, Consent Obtained/Reviewed and Anes Risks/Benef Reviewed Patient Risk: Low Procedure Risk: Low Anesthetic Plan Anesthetic Plan: MAC: Disposition: Standard PACU
[2025-01-08] VITALS (9 sets, daily range): BP systolic 97–124; BP diastolic 55–79; PULSE 60–71; RESP 12–16; TEMP 36.1–36.7; O2SAT 93–99; BMI 30.5
[2025-01-08 08:31] LABS: UPreg QC Valid YES
[2025-01-08 08:32] LABS: Urine Pregnancy NEGATIVE (NEGATIVE)
--- NOTE | 2025-01-08 08:53 | MHC.SHP ---
Pre-Procedural Eval Section A - 24 Hr Update-Section A only Date of Service: 01/08/25 The patient is an INPATIENT: No Changes since office visit: No Cold of Flu in the past 2 weeks, No New Medical Problems, No Changes in Medication and No Patient answered all questions The patient has been examined within 24 hours of the surgical procedure. The History & Physical has been completed within 30 days and I have reviewed it.: Yes Section B - Complete if H&P > 30 days Chief Complaint: Abnormal findings on diagnostic imaging of other a Allergies: Allergies Allergy/AdvReac Type Severity Reaction Status Date / Time No Known Allergies (No Known Allergy Verified 01/08/25 08:50 Allergies*) Plan Diagnosis/Plan: Unchanged I have reviewed the history and physical and performed a pertinent physical examination on my patient. No changes have occurred unless specified. Time Spent With Patient Time: Total time managing care of this patient today ____ minutes.
[2025-01-08] MEDS: Lactated Ringers 1,000 ML 100 ML IVCONT (09:02)
--- NOTE | 2025-01-08 10:27 | PM.OP ---
Brief Operative Note Date of Service: 01/08/25 Pre-op diagnosis: Abnormal endometrium by ultrasound Post-op diagnosis: same (Normal endometrial cavity) Procedure: Hysteroscopy D&C Surgeon: Mehran Salinas MD Anesthesia: GLMA Was an Power Line Lineman used for this Procedure?: No Estimated blood loss (mL): 0 Pathology: other (Endometrial Scrapping) Condition: stable Disposition: PACU
--- NOTE | 2025-01-08 10:28 | W.PM.OPN ---
Operative Note Operative Note Date of Service: 01/08/25 Narrative: Preop Diagnosis: Abnormal endometrium by ultrasound Operation: Diagnostic Hysteroscopy, Dilataion & Curettage Post Op Diagnosis: Normal endometrial and endocervical cavity, no evidence of pathology QBL: Minimal Anesthesia: GLMA Surgeon: Mehran Salinas MD Residential Leasing Agent: None Complication: None Pathology: Endometrial Scrapings Procedure: The patient was put in the dorsal lithotomy position, scrubbed, and draped in the usual manner. A sterile speculum was inserted in the patient's vagina. The anterior lip of the cervix was grasped with a single tooth tenaculum. The cervix was dilated up to 5 mm, then the scope was inserted in the patient's uterus. Inspection revealed normal endocervical & endometrial cavity with no evidence of pathology. The scope was taken out of the uterine cavity , then sharp curetting was carried on with no complications. At the end of the procedure, all instruments were taken out of the patient uterine and vaginal cavity. The single tooth tenaculum was removed and homeostasis was assured using pressure. The patient tolerated the procedure well and was transferred to the PACU in a stable condition.
== END 2025-01-08 15:10 | disposition home or self-care (01) ==
PROVIDERS: PCP Internal Medicine; Visit Provider Obstetrics & Gynecology
PROC: 0UDB8ZZ Extraction of Endometrium, Via Natural or Artificial Opening Endoscopic (ICD-10-PCS; CPT 58558; principal; 2025-01-08 11:00)
DX: R10.2 Pelvic and perineal pain (principal); N76.0 Acute vaginitis; N85.01 Benign endometrial hyperplasia; Z98.51 Tubal ligation status; G43.909 Migraine, unspecified, not intractable, without status migrainosus; M41.9 Scoliosis, unspecified
CPT/HCPCS: 58558; 81025; 88305; J1100; J1885; J2003; J2250; J2405; J2704; J3010

== ENCOUNTER → 2025-01-08 08:02 | Outpatient (BNV) | payer OTHER, SELFPAY | PROVIDERS: PCP Internal Medicine; Visit Provider Obstetrics & Gynecology | DX: R93.89 Abnormal findings on diagnostic imaging of other specified body structures (principal) | CPT/HCPCS: 58558 ==

== ENCOUNTER 2025-01-26 08:12 | Outpatient (AMB) | payer OTHER, SELFPAY ==
--- NOTE | 2025-01-26 08:12 | MHC.OFFVIS ---
Intake Visit Reasons: post op Allergies No Known Allergies (No Known Allergies*) Allergy (Verified 01/08/25 08:50) HPI Comments Details: The patient is presenting post hysteroscopy D&C no complaints minimal vaginal bleeding no feverishness chills or abdominal pain. Intraoperative finding: normal endometrial cavity The pathology showed the following: Endometrium, curettage: Benign disordered proliferative endometrium and benign endocervical glandular mucosa; no atypia or carcinoma PFSH Medical History Migraine headache Scoliosis Surgical History Hx of tubal ligation Family History Maternal Grandmother Diabetes mellitus CVD (cardiovascular disease) Social History Household Members: Spouse and Children Housing: House Are you a primary day care assistant to a significant other at home: No Do you presently have visiting nurse or other home services: No Unable to assess alcohol history related to: Unknown Alcohol intake: current Alcohol intake frequency: does not drink Patient Tobacco Use Status: Never used Tobacco e-Cigarette/Vaping Use: Never Used Second Hand Smoke Exposure: No service: No Current occupational status: employed 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[employer]) Sexual orientation: Straight/Heterosexual Gender identity: Female Cognitive needs: No Hearing needs: No Vision needs: No Female Reproductive History Menstrual Age of Menarche: 13 Review of Systems Const All systems reviewed & are unremarkable except as noted in HPI and below Reports as per HPI and Reports no additional complaints GI Reports no additional complaints Reports no additional complaints Telehealth Telehealth Telehealth Platform: Telephone Location of provider rendering services: practice address Location of patient: address on file Patient Identification confirmed using: Name, : Yes Telehealth method: video Patient verbally consented to treatment: Yes Patient verbally consented to billing insurance company: Yes Patient informed of any privacy concerns related to visit: Yes Minutes spent on Phone/Video with Pt.: 2 Assessment & Plan Assessment & Plan (1) Abnormal endometrial ultrasound: Code(s): R93.5 - Abnormal findings on diagnostic imaging of other abdominal regions, including retroperitoneum Category: Medical Plan: Discussed with the patient the intraoperative findings, normal cavity and the results the pathology, the patient was reassured. I spent a total of 20 minutes reviewing the chart, talking to the patient via video and documenting in the medical record. Coding Level of Care Code Tele Est Pt Level 3 (14414) Diagnoses Abnormal endometrial ultrasound R93.5
--- OUTSIDE RECORDS SUMMARY | 2025-01-26 08:15 | XMS_ITS | Data Portability ---
Author Organization [place] - [facility], Allergy Address [address] [place] [address] Care Team Providers Care Shuttle Threader Name Role Phone LUEHSANDarryl Primary Care Provider [phone] Assessment Encounter Date Assessment Date Assessment LastModified [...] She has not found any relief with ezcb-ljn-ftmisxj allergy medication and I believe allergy skin [...] injections (PROC) 2023 024 [email or web address] Not available 15:41:38 allergy testing, skin prick (PROC) 2023 024 [email or web address] Not available 4 11:18:29 intraderma l allergy skin testing (PROC) 2023 024 [email or web address] Not available 4 11:18:41 pulmonary function test procedure (PROC) 2023 024 [email or web address] Not available 11:18:57 pulse oximetry (PROC) 2023 024 [email or web address] Not available 11:18:50 Surgeries None recorded. Imaging None recorded. Medication Orders EpiPen 2-Angel 0.3 mg/0.3 mL injection, auto-injec tor 2023 024 [facility]acy #[id number], [address] [facility], [place], [address], 09:40:01 Patient TargetsNo targets recorded. Patient Instructions Encounter Date Encounter Id Patient Instructions Last Modified By Organization Details Last Modified Time 01/27/2024 [id number] Nursing Documentation for Allergy Testing: Ordering Provider [...] last month: No Proceed with PFT Yes DrKarena approval needed: No Nursing Notes: Pt tolerated test well Yes Benadryl cream to test sites Yes Patient became syncopal-placed in supine position No Large reactions to MQT, reschedule IDT for a different date Yes Other: Written by: Anne Gustafson [email or web address] Not available 01/27/2024 11:04:06 Reason for Referral None Reported. Problems Name Problem SNOMED Code Status Onset Date Resolution Date Notes Provider Name and Address Organization Details Recorded Time Hypertrop hy of nasal turbinate s 43077537 Active 2019 Hypertroph y of nasal turbinates ; Note: Date Diagnosed: 09/03/2019 10:55 AM (J34.3) Not Available [facility] 4 02:44:49 Allergic rhinitis 19907183 Active 2019 Perennial allergic rhinitis; Note: Date Diagnosed: 09/03/2019 10:55 AM (J30.89) Note: Date Diagnosed: 09/03/2019 10:55 AM (J30.89) Not Available [facility] 4 01:07:35 Nasal congestio n 51650080 Active 2019 Nasal congestion ; Note: Date Diagnosed: 09/03/2019 10:55 AM (R09.81) Not Available [facility] 4 02:44:51 Perennial allergic rhinitis 790022592 Active 2023 JENAE GANNON MD [address] [facility],[place] [address], [place], [address] , [facility] 4 11:53:28 Problem Notes None recorded. Procedures Surgical History Date Name Laterality Status Provider Name and Address Organization Details Recorded Time 01/28/20 24 Allergy Testing-Full completed CUBA HUANG [address] [facility],[place] [address], [place], [address], [place] - [facility] 01/28/2024 13:45:31 01/27/20 24 Allergy Testing Modified- Quantitative Testing (MQT) Only completed CUBA HUANG [address], [address], [facility] 01/27/2024 11:17:39 12/19/19 24 NasalEndoscopy_D P completed JENAE GANNON MD [address], [address], [facility] 12/19/2023 11:53:03 10/23/19 21 ligation of fallopian tube completed Ivette Burch [facility] 12/19/2023 11:27:08 Imaging Results None recorded. [...] Updated DateTime 12/19/2023 160.02 cm 26.6 kg/m2 20522.86 g Ivette Burch [place] - [facility] 12/19/2023 11:40:01 Date Recorded Body height Body mass index (BMI) Body weight Heart rate Oxygen saturation Oxygen saturation in Arterial blood by Pulse oximetry Systolic And Diastolic Provider Name and Address Organization Details Last Updated DateTime 4 160.02 cm 26.6 kg/m2 40512.8 6 g 76 /min 97 % 97 % 105/74 mm[Hg] ANNE GUSTAFSON [place] [address], [place], [address], [place] - [facility] 10:45:11 Date Recorded Oxygen saturation Oxygen saturation in Arterial blood by Pulse oximetry Heart rate Systolic And Diastolic Provider Name and Address Organization Details Last Updated DateTime 01/28/2024 98 % 98 % 80 /min 110/78 mm[Hg] [place] [address], [place], [address] , [place] - [facility] 13:25:40 Social History None recorded. Functional Status None recorded. Mental Status None recorded. Family History Nothing Reported. Medical History Condition Response Anxiety Y Migraines Y Gynecological HistoryNo gynecological history recorded. Obstetrics History GPAL:G 0 P 0 0 0 0 Past Encounters Encounter ID Performer Location Encounter Start Date Encounter Closed Date Diagnosis/Indication Diagnosis SNOMED-CT Code Diagnosis ICD10 Code Diagnosis Note [id number] JENAE GANNON MD [facility] [address] [address] 12/19/2023 11:13:07 12/19/2023 12:13:40 Allergic rhinitis 89916092 J30.9 Perennial allergic rhinitis 765211564 J30.89 [id number] CU[facility] HUANG [facility] [address] [address] 01/27/2024 10:35:03 01/29/2024 13:23:45 Allergic rhinitis 67758483 J30.9 [id number] CUBA [address] [facility] [address] [facility] [address] [place] [address] 01/28/2024 13:01:52 01/29/2024 13:18:30 Allergic rhinitis 46254591 J30.9 [id number] JENAE GANNON MD [facility] [address] [place] [address] 02/14/2024 09:14:57 02/14/2024 09:42:10 Allergic rhinitis 53735509 J30.9 Health Concerns Section Related Observation LastModified by Organization Detai ls LastModified Time None Recorded Concern Status LastModified by Organization Details LastModified Time None Recorded Advance Directives Directive None Recorded Payers Insurance Date Sequence Insurance Name Policy Number Policy Corbin Covered Member ID Corbin Member ID Guarantor Name 02/13/2024 1 [place] [id number] Charmaine Milagros 01/27/2024 1 [facility] (MEDICAID HMO) Charmaine [place] [id number] Charmaine Milagros 01/22/2024 1 [facility] [id number] Charmaine M Milagros [id number] Charmaine Milagros 01/23/2024 2 [facility]HMO[facility] [id number] Charmaine M Milagros [id number] Charmaine Milagros 02/13/2024 1 [facility] PLAN (MEDICAID HMO) Charmaine Milagros [id number] Charmaine Milagros 01/22/2024 1 [place] [facility] Charmaine M [place] [id number] Charmaine Milagros Notes Date Note Type Note Provider Name and Address Organization Details Recorded Time 12/19/2023 text/html nasal congestion poor sense of smell but occasional OK on right sideonset years agodoes not recall nasal traumano imaging of sinusno epistaxistobacco - deniestried nasal spray flonase - no reliefzyrtec also not 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, 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 MD [address] [facility],[place] [address], [place], [address], [facility] - [facility] [place] 12/19/2023 11:55:08 02/14/2024 text/html Allergic rhinitis01/28/24 Allergy skin testing - Maltese planting, cockroach, dust, Melissa, mold, cat, dog nasal congestionpoor sense of smell but occasional OK on right sideonset years agodoes not recall nasal traumano imaging of sinusno epistaxistobacco - deniestried nasal spray flonase - no reliefzyrtec also not 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
--- OUTSIDE RECORDS SUMMARY | 2025-01-26 08:16 | XMS_ITS | Clinical Summary ---
Author Organization [facility] ity Address [address] [place] [address] Care Team Providers Care Parking Lot Laborer Name Role Phone Unavailable Primary Care Provider [...] - 2023-2 5 season) 2024 Influenza Vaccine (#1) 2025 HIB Vaccines Aged Out No longer [...] 5 Years) and At-Risk Patients (6 to 49 Years) Aged Out No longer eligible b ased on patient's age to complete this topic RSV Immunization Patients Un emelina 20 months Aged Out No longer eligible b ased on patient's age to complete this topic Varicella Vaccines Aged Out No longer eligible based on patient's age to complete this topic
== END 2025-01-26 09:09 | disposition home or self-care (01) ==
LOC: HO.HWS 08:12
PROVIDERS: PCP Internal Medicine; Visit Provider Obstetrics & Gynecology
DX: R93.5 Abnormal findings on diagnostic imaging of other abdominal regions, including retroperitoneum (principal)
CPT/HCPCS: 99213

== ENCOUNTER 2025-07-14 10:31 | Outpatient (AMB) | payer OTHER, SELFPAY ==
--- NOTE | 2025-07-14 10:33 | MHC.PC.OV ---
Vital Signs 07/14/25 10:34 Height 5 ft 3 in Weight 177 lb 6 oz BMI 31.4 BP 124/80 Blood Pressure Location Lt brachial Position Sitting Respiration 18 Pulse 79 Pulse Source Pulse Oximeter Pulse Oximetry (%) 98 Oxygen Delivery Method Room Air Intake Visit Reasons: Annual PE RE Is last menstrual period known: Yes Last menstrual period: 06/10/25 Patient : No Allergies No Known Allergies (No Known Allergies*) Allergy (Verified 07/14/25 10:34) Medication List - Last Reconciled 07/14/25 by Tarun Harmon MD ipigieo-xegnifnyxodxa-tkcmcubi 250-250-65 mg (Excedrin Migraine) 1 tab PO Q6H PRN cetirizine (Zyrtec) 10 mg PO Q12H 90 days escitalopram oxalate 10 mg PO DAILY fluticasone propionate 50 mcg/actuation (Allergy Relief (fluticasone)) 1 spray intranasal BID metoclopramide HCl (Reglan) 10 mg PO Q6H PRN Tobacco use date assessed: 07/14/25 Dental Screening Dental Screen Date: 07/14/25 Did you have a dental visit in the last 12 months?: Yes Did you have a dental problem in the last 6 months where you did not have access to dental care?: No Was dental information given to patient?: Patient has dentist HPI HPI Comments History of Present Illness Details History of Present Illness The patient is a 29-year-old female presenting for an annual physical examination. Anxiety: - The patient reports feeling anxious all the time. - She was previously prescribed escitalopram for anxiety in the summer but did not take it. - Associated symptoms include left-sided chest pain and facial tingling occurring for the past couple of months. - She notes that stress, particularly from being alone with her young children, is a significant trigger. Renal Calculus: - The patient was hospitalized on June 27 for pelvic pain. - A 5 mm non-obstructive calculus was identified in the lower pole of the right kidney. - At that time, she experienced severe pain across her entire right side. - She currently denies any back pain or blood in her urine. Hepatic Steatosis: - The patient has a diagnosis of fatty liver, which is associated with her being overweight. - Lab work from November of this year showed normal liver enzymes. Vitamin D Deficiency: - Lab results from November this year indicated a low vitamin D level. Prediabetes: - The patient has a history of prediabetes. Unilateral Peripheral Edema: - The patient reports intermittent swelling in her left foot and hand. - The hand swelling is sometimes severe enough that her ring gets stuck. Medical History: - Anxiety - Allergic rhinitis - Hospitalization on June 27 for pelvic pain due to renal calculus - Nonobstructive right renal calculus (5 mm) - Hepatic steatosis - Vitamin D deficiency - Prediabetes Social History: - The patient has two young children, ages four and six. - She is often alone with her children, which she identifies as a source of stress and anxiety. - The patient is overweight. Family History: - Both parents of heart attacks. Health Maintenance - The patient saw her WORD PROCESSOR OPERATOR in January of this year. - A breast exam was deferred during this visit due to menstrual tenderness. - She was advised to eat healthy and lose weight for management of fatty liver. [place] of Care - Patient saw Dr. Salinas (WORD PROCESSOR OPERATOR) in January of this year. [facility] Medical History Migraine headache Scoliosis Surgical History Hx of tubal ligation Family History Maternal Grandmother Diabetes mellitus CVD (cardiovascular disease) Social History Household Members: Spouse and Children Housing: House Are you a primary animal care assistant to a significant other at home: No Do you presently have visiting nurse or other home services: No Alcohol intake: current Alcohol intake frequency: does not drink Patient Tobacco Use Status: Never used Tobacco e-Cigarette/Vaping Use: Never Used Second Hand Smoke Exposure: No service: No Current occupational status: employed 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 1. Little interest or pleasure in doing things: several days 2. Feeling down, depressed, or hopeless: several days 3. Trouble falling or staying asleep, or sleeping too much: several days 4. Feeling tired or having little energy: not at all 5. Poor appetite or overeating: not at all 6. Feeling bad about yourself - or that you are a failure or have let yourself or your family down: not at all 7. Trouble concentrating on things, such as reading the newspaper or watching television: several days 8. Moving or speaking so slowly that other people could have noticed. Or the opposite - being so fidgety or restless that you have been moving around a lot more than usual: not at all 9. Thoughts that you would be better off or of hurting yourself in some way: not at all Total score: 4 Depression Screening Interpretation: Negative Depression Screening Done: Yes 03866 - PHQ-9 Billing: Yes Source: Developed by Drs. Mohinder Turpin, Sandee Corcoran, Wicho Elizondo and colleagues, with an educational alan from [employer]. Thrive Questionnaire Date Thrive assessed: 07/14/25 I am a: Patient What is your living situation today?: I have a steady place to live Within the past 12 months, did the food you bought not last and you didn't have the money to get more?: Never true Within the past 12 months, did you worry whether your food would run out before you got money to buy more?: Never true Do you have trouble paying for medicines?: No Do you have trouble getting transportation to medical appointments?: No Do you have trouble paying your heating and electricity bill?: Yes Do you have trouble taking care of your child, family member or friend?: No Do you have trouble with day-to-day activities such as bathing, preparing meals, shopping, managing finances, etc.?: No Are you currently unemployed and looking for a job?: I choose not to answer this question Are you interested in more education?: No Please select the resources that you would like help with: None Currently or been in a relationship where the following occur: No concerns reported and I choose not to answer THRIVE Score: 1 AUDIT C Alcohol Use Questionnaire (AUDIT-C) 1. How often do you have a drink containing alcohol?: Never 3. How often do you have six or more drinks on one occasion?: Never Total Score: 0 Score Reviewed/Action Taken: Yes JOANNA-7 AMB Questionnaire JOANNA-7 Date JOANNA - 7 assessed: 07/14/25 Feeling nervous, anxious, or on edge: 1 = Several days Not being able to stop or control worryin = Not at all Worrying too much about different things: 2 = More than half the days Trouble relaxin = More than half the days Being so restless that it is hard to sit still: 0 = Not at all Becoming easily annoyed or irritable: 1 = Several days Feeling afraid as if something awful might happen: 0 = Not at all Total JOANNA-7 score (0-4 normal; 5-9 mild; 10-14 moderate; 15-21 severe): 6 Source: Developed by Drs. Mohinder Turpin, Sandee Corcoran, Wicho Elizondo and colleagues, with an educational alan from [employer]. JOANNA-7 Assessment Billing JOANNA-7 Assessment Tool: JOANNA-7 Assessment 95048 Review of Systems Narrative Review of Systems - General: No fever no chills - Neurological: No headaches no dizziness - Ear nose throat: No sore throat no hearing difficulty no ear pain - Cardiovascular: No syncope, no palpitations - Gastrointestinal: No nausea vomiting or diarrhea - Endocrine: No polyuria polydipsia no heat intolerance - Genitourinary: No dysuria - Skin: No new complaints Physical exam (Primary Care) Vital Signs: Last Vital Signs Pulse 79 07/14/25 10:34 Resp 18 07/14/25 10:34 BP 124/80 07/14/25 10:34 Pulse Ox 98 07/14/25 10:34 Oxygen Delivery Method Room Air 07/14/25 10:34 BMI result Body Mass Index 31.4 Tobacco/Smoking Status: Tobacco use Status Tobacco use date assessed 07/14/25 07/14/25 10:40 Patient Tobacco Use Status Never used Tobacco 07/14/25 10:40 e-Cigarette/Vaping Use Never Used 07/14/25 10:40 PHQ-9: PHQ-9 Score PHQ-9: Total score 4 07/14/25 10:40 Depression Screening Interpretation: Negative Thrive Assessment: Date of Thrive Assessment Date Thrive assessed 07/14/25 07/14/25 10:40 Currently or been in a relationship where the following occur: No concerns reported and I choose not to answer Narrative Diagnostic results - EKG (current visit): Within normal limits with no acute findings. - Labs (November of this year): Showed normal liver enzymes, low vitamin D level, and a normal CBC. - Diagnosis status: The patient is prediabetic. - Imaging: Revealed a 5 mm nonobstructive right renal calculus and fatty liver. Physical Exam General: Cooperative, healthy appearing, comfortable, no acute distress Orientation: Patient oriented x3 Head: Normal to inspection Ears: Within normal limit visually Nose: Normal external nose present Face and sinus: Normal facial exam Eyes: Appearance normal, extraocular movement intact pupils reactive Neck: Normal visual inspection and supple Respiratory: Normal respiratory effort and able to speak in complete sentences. Clear to auscultation, no stridor Cardiovascular: S1 and S2 RRR, EKG within normal limit, no acute findings GI: Normal to inspection. Soft to palpation and nontender. Fatty liver noted Skin: Turgor normal, no acute findings, no rashes, no moles Neuro: Patient oriented x3, motor sensory intact, balance intact, tandem pass Extremities: Normal to inspection, ROM intact . Office Procedures EKG 87422-Nwluapdpfozmvlaaa, Complete Coding Level of Care Code Est Pt Level 4 (12173) Est Pt Prev Care 18-39y(98379) Diagnoses Encounter for general adult medical examination with abnormal findings Z00.01 Chest pain, unspecified type R07.9 Chest pain type: unspecified Anxiety, generalized F41.1 Environmental allergies Z91.09 Pre-diabetes R73.03 Vitamin D deficiency E55.9 CPT Codes EKG - CPT: 84519-Dmimpiitwtrlsjaww, Complete ([id number]) Additional Codes JOANNA-7 Assessment Billing - JOANNA-7 Assessment Tool: JOANNA-7 Assessment 09680 ([id number]) PHQ-9 - 03444 - PHQ-9 Billing: Yes ([id number]) Assessment & Plan Assessment & Plan (1) Encounter for general adult medical examination with abnormal findings: Code(s): Z00.01 - Encounter for general adult medical examination with abnormal findings Category: Medical (2) Chest pain: Code(s): R07.9 - Chest pain, unspecified Category: Medical Qualifiers: Chest pain type: unspecified Qualified Code(s): R07.9 - Chest pain, unspecified (3) Anxiety, generalized: Code(s): F41.1 - Generalized anxiety disorder Category: Medical (4) Environmental allergies: Code(s): Z91.09 - Other allergy status, other than to drugs and biological substances Category: Medical (5) Pre-diabetes: Code(s): R73.03 - Prediabetes Category: Medical (6) Vitamin D deficiency: Code(s): E55.9 - Vitamin D deficiency, unspecified Category: Medical Plan Patient Instructions - Start taking escitalopram for your anxiety. Begin with half a tablet for two weeks, then take a full tablet daily. - Take a vitamin D supplement as your level is low. - If you experience pain from your kidney stone again, you will need to see a urologist. - If the swelling in your left hand or foot becomes more frequent, please let me know, as you may need to see a vascular specialist. - Please go for new fasting blood tests to check your cholesterol, thyroid, B12, and vitamin D levels. - To help with the fatty liver, focus on eating a healthy diet and losing weight. - Watch for any signs of an allergic reaction with any new medication. - Schedule a follow-up appointment in 2 months to check on how you are doing. Orders: Orders Comprehensive [place]. Panel Fast Today E55.9 - Vitamin D deficiency, unspecified, F41.1 - Generalized anxiety disorder, R07.9 - Chest pain, unspecified, R73.03 - Prediabetes, Z00.01 - Encounter for general adult medical examination with abnormal findings, Z91.09 - Other allergy status, other than to drugs and biological substances Vitamin B12 Today E55.9 - Vitamin D deficiency, unspecified, F41.1 - Generalized anxiety disorder, R07.9 - Chest pain, unspecified, R73.03 - Prediabetes, Z00.01 - Encounter for general adult medical examination with abnormal findings, Z91.09 - Other allergy status, other than to drugs and biological substances Complete Blood Count Auto Diff Today E55.9 - Vitamin D deficiency, unspecified, F41.1 - Generalized anxiety disorder, R07.9 - Chest pain, unspecified, R73.03 - Prediabetes, Z00.01 - Encounter for general adult medical examination with abnormal findings, Z91.09 - Other allergy status, other than to drugs and biological substances Lipid Panel Today E55.9 - Vitamin D deficiency, unspecified, F41.1 - Generalized anxiety disorder, R07.9 - Chest pain, unspecified, R73.03 - Prediabetes, Z00.01 - Encounter for general adult medical examination with abnormal findings, Z91.09 - Other allergy status, other than to drugs and biological substances Vitamin D 25-OH (D2 and D3) Today E55.9 - Vitamin D deficiency, unspecified, F41.1 - Generalized anxiety disorder, R07.9 - Chest pain, unspecified, R73.03 - Prediabetes, Z00.01 - Encounter for general adult medical examination with abnormal findings, Z91.09 - Other allergy status, other than to drugs and biological substances TSH reflex Free T4 Today E55.9 - Vitamin D deficiency, unspecified, F41.1 - Generalized anxiety disorder, R07.9 - Chest pain, unspecified, R73.03 - Prediabetes, Z00.01 - Encounter for general adult medical examination with abnormal findings, Z91.09 - Other allergy status, other than to drugs and biological substances Medications: Refilled escitalopram oxalate 10 mg PO DAILY 90 tabs 0RF for anxiety Discontinued qfxfngp-ciuttoulyxsvp-tztgnrdg 250-250-65 mg (Excedrin Migraine) Discontinued Reason: Doctor's Order 1 tab PO Q6H PRN 7 tabs 0RF headache metoclopramide HCl (Reglan) Discontinued Reason: Doctor's Order 10 mg PO Q6H PRN 7 tabs 0RF nausea and vomiting
[2025-07-14 10:34] VITALS: BP 124/80; PULSE 79; RESP 18; O2SAT 98; BMI 31.4
--- OUTSIDE RECORDS SUMMARY | 2025-07-14 11:47 | XMS_ITS | Data Portability ---
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 Imaging None recorded. Medication Orders EpiPen 2-Angel 0.3 mg/0.3 mL injection, auto-injec tor 2023 024 [facility]arm[facility] #[id number], [address] [facility], [place], [address], 09:40:01 Patient TargetsNo targets recorded. Patient Instructions Encounter Date Encounter Id Patient Instructions Last Modified By Organization Details Last Modified Time 01/27/2024 [id number] Nursing Documentation for Allergy Testing: Ordering Provider [...] date Yes Other: Written by: Anne Gustafson Not available 01/27/2024 11:04:06 Reason for Referral None Reported. Problems Name Problem SNOMED Code Status Onset Date Resolution Date Notes Provider Name and Address Organization Details Recorded Time Hypertrop hy of nasal turbinate s 32426148 Active 2019 Hypertroph y of nasal turbinates ; Note: Date Diagnosed: 09/03/2019 10:55 AM (J34.3) Not Available [facility] 4 02:44:49 Allergic rhinitis 77540471 Active 2019 Perennial allergic rhinitis; Note: Date Diagnosed: 09/03/2019 10:55 AM (J30.89) Note: Date Diagnosed: 09/03/2019 10:55 AM (J30.89) Not Available [facility] 4 01:07:35 Nasal congestio n 91346800 Active 2019 Nasal congestion ; Note: Date Diagnosed: 09/03/2019 10:55 AM (R09.81) Not Available [facility] 4 02:44:51 Perennial allergic rhinitis 430282208 Active 2023 JENAE GANNON MD [address] [facility],[place] [address], [place], [address] , [facility] 4 11:53:28 Problem Notes None recorded. Procedures Surgical History Date Name Laterality Status Provider Name and Address Organization Details Recorded Time 01/28/20 24 Allergy Testing-Full completed CUBA HUANG [address] [facility],[place] [address], [place], [address], [place] - [facility] 01/28/2024 13:45:31 01/27/20 24 Allergy Testing Modified- Quantitative Testing (MQT) Only completed CUBA HUANG [address], [address], [facility] 01/27/2024 11:17:39 12/19/19 24 NasalEndoscopy_D P completed JENAE GANNON MD [address], [address], [facility] 12/19/2023 11:53:03 10/23/19 21 ligation of fallopian tube completed Ivette Burch [facility] 12/19/2023 11:27:08 Imaging Results None recorded. [...] Updated DateTime 12/19/2023 160.02 cm 26.6 kg/m2 81896.86 g Ivette Burch [place] - [facility] 12/19/2023 11:40:01 Date Recorded Body height Body mass index (BMI) Body weight Heart rate Oxygen saturation Systolic And Diastolic Provider Name and Address Organization Details Last Updated DateTime 160.02 cm 26.6 kg/m2 85895.8 6 g 76 /min 97 % 105/74 mm[Hg] DIXON HUANG[address], [address], [facility] 10:45:11 Date Recorded Oxygen saturation Heart rate Systolic And Diastolic Provider Name and Address Organization Details Last Updated DateTime 01/28/2024 98 % 80 /min 110/78 mm[Hg] ANNE GUSTAFSON [address], [address], [facility] 01/28/2024 13:25:40 Social History None recorded. Functional Status None recorded. Mental Status None recorded. Family History Nothing Reported. Medical History Condition Response Migraines Y Anxiety Y Gynecological HistoryNo gynecological history recorded. Obstetrics History GPAL:G 0 P 0 0 0 0 Past Encounters Encounter ID Performer Location Encounter Start Date Encounter Closed Date Diagnosis/Indication Diagnosis SNOMED-CT Code Diagnosis ICD10 Code Diagnosis IMO Codes Diagnosis Note [id number] JENAE GANNON MD [facility] [address] [address] 12/19/2023 11:13:07 12/19/2023 12:13:40 Allergic rhinitis 22291001 J30.9 Perennial allergic rhinitis 425021714 J30.89 [id number] CUBA HUANG [facility] [address] [place] [address] 01/27/2024 10:35:03 01/29/2024 13:23:45 Allergic rhinitis 04586803 J30.9 [id number] CU[facility] HUANG [facility] [address] [place] [address] 01/28/2024 13:01:52 01/29/2024 13:18:30 Allergic rhinitis 41723316 J30.9 [id number] JENAE GANNON MD [facility] [address] [facility] [place] [address] 02/14/2024 09:14:57 02/14/2024 09:42:10 Allergic rhinitis 27202039 J30.9 Health Concerns Section Related Observation LastModified by Organization Detai ls LastModified Time None Recorded Concern Status LastModified by Organization Details LastModified Time None Recorded Advance Directives Directive None Recorded Payers Insurance Date Sequence Insurance Name Policy Number Policy Corbin Covered Member ID Corbin Member ID Guarantor Name 02/13/2024 1 [place] [facility] Charmaine Watson Milagros [id number] Charmaine [place] 01/27/2024 1 [facility] PLAN (MEDICAID HMO) Charmaine [place] [id number] Charmaine Milagros 01/22/2024 1 [facility] [id number] Charmaine Shirley Milagros [id number] Charmaine [place] 01/23/2024 2 [facility]CTOR[facility] TYPE I (HMO) [id number] Charmaine M Milagros [id number] Charmaine Milagros 02/13/2024 1 [facility] PLAN (MEDICAID HMO) Charmaine Milagros [id number] Charmaine [place] 01/22/2024 1 [facility] [place] [id number] Charmaine [place] Notes Date Note Type Note Provider Name and Address Organization Details Recorded Time 12/19/2023 text/html ROS as noted in the HPI nasal congestionpoor sense of smell but occasional OK on right sideonset years agodoes not recall nasal traumano imaging of sinusno epistaxistobacco - deniestried nasal spray flonase - no reliefzyrtec also not 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, 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 MD [address], [address], [place] - [facility] 12/19/2023 11:55:08 02/14/2024 text/html ROS as noted in the HPI Allergic rhinitis01/28/24 Allergy skin testing - Nepali planting, cockroach, dust, Melissa, mold, cat, dog nasal congestionpoor sense of smell but occasional OK on right sideonset years agodoes not recall nasal traumano imaging of sinusno epistaxistobacco - deniestried nasal spray flonase - no reliefzyrtec also not 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
--- OUTSIDE RECORDS SUMMARY | 2025-07-14 11:47 | XMS_ITS | Clinical Summary ---
Author Organization [facility] Address [address] [place] [address] Care Team Providers Care Chief Accounting Officer Name Role Phone Unavailable Primary Care Provider [...] Cervical Cancer Screening: P ap Smear 2014 HPV Vaccines (1 - 3-dose SCD M series) 2020 Depression Screening 07/15/2024 COVID-19 Vaccine ( - 2024-2 6 season) 2025 Influenza Vaccine (#1) 2025 RSV Immunization Adult Patie nts (1 - 1-dose 75+ series) 2068 HIB Vaccines Aged Out No longer eligi [...]
== END 2025-07-14 11:57 | disposition home or self-care (01) ==
LOC: HO.HMCC 10:32
PROVIDERS: PCP Internal Medicine; Visit Provider Internal Medicine
DX: Z00.01 Encounter for general adult medical examination with abnormal findings (principal); R07.9 Chest pain, unspecified; F41.1 Generalized anxiety disorder; Z91.09 Other allergy status, other than to drugs and biological substances; R73.03 Prediabetes; E55.9 Vitamin D deficiency, unspecified

== ENCOUNTER → 2025-07-14 10:31 | Outpatient (BNVA) | payer OTHER, SELFPAY | PROVIDERS: PCP Internal Medicine; Visit Provider Internal Medicine | DX: Z00.01 Encounter for general adult medical examination with abnormal findings (principal); R07.9 Chest pain, unspecified; N20.0 Calculus of kidney; F41.1 Generalized anxiety disorder; R73.03 Prediabetes; E55.9 Vitamin D deficiency, unspecified; Z91.09 Other allergy status, other than to drugs and biological substances; K76.0 Fatty (change of) liver, not elsewhere classified; R60.0 Localized edema; Z13.31 Encounter for screening for depression; Z13.39 Encounter for screening examination for other mental health and behavioral disorders | CPT/HCPCS: 93005; 96127; 99212; 99395 ==